=== PATIENT | male | born 1965 | race Caucasian/White ===

== ENCOUNTER 2017-02-10 19:43 | Inpatient (IN) | payer BC ==
[~2017-02-10 19:43] MED LIST: Iopamidol 370 76% 100 ML VIAL ONE
--- OUTSIDE RECORDS SUMMARY | 2017-02-10 19:47 | XMS | Continuity of Care Document ---
:1965 Author Organization [facility] Care Team Providers Name Role Phone An Vogel Primary Care Physician Unavailable Insurance Providers Payer Name Policy Number Subscriber Name Relationship [facility] [id number] AN ROMO Advance Directives Directive Response Recorded Date/Time Advance Directive? N 12/29/16 12:35pm Living Will? N 12/29/16 12:35pm Health Care Proxy? N 12/29/16 12:35pm Healthcare Power of Customer Program Manager? N 12/29/16 12:35pm Is the patient an Organ Donor? N 12/29/16 12:35pm Chief Complaint and Reason for Visit Reason for Visit SINUS INFECTION Problems Active Medical Problems Problem Onset Date Recorded Date Status Sinusitis Unknown 12/29/16 Active Cystitis Unknown 12/29/16 Active Medications Current Home Medications Medication Dose Units Route Directions Days/Qty Instructions Start Date AMOXICILLIN & POT 250 MG By Mouth THREE TIME A 30 12/29/16 CLAVULANATE DAY(;15;21) (AUGMENTIN 250 MG) 250 MG/125 MG TAB Levofloxacin 250 MG By Mouth EVERY DAY @ 14 12/29/16 (LEVAQUIN 250 MG 0900 TAB) 250 MG TAB Social History Problem Response Recorded Date Recreational drugs? N 12/29/16 Alcohol? N 12/29/16 Query Response Start Date Stop Date Smoking Status: Never Smoker Hospital Discharge Instructions No hospital discharge instructions. Plan of Care Discharge Date 12/29/16 Disposition HOME/SELF CARE Condition at Discharge STABLE Instructions/Education Provided Acute Cystitis DI for Sinusitis Forms Provided Discharge Form Prescriptions See Medications Section Referrals An Vogel - Additional Instructions/Education Follow up with primary care doctor on saturday for re-evaluation. Return to ED for any worsening symptoms or any acute changes. Functional Status No functional status results. Allergies, Adverse Reactions, Alerts No known allergies. Immunizations No Known History of Immunizations. Vital Signs Vital Reading Collection Date/Time Result Blood Pressure 12/29/16 1:02pm 101/51 Temperature 12/29/16 1:02pm 98.5 F Temperature Source 12/29/16 12:16pm Oral Pulse Rate 12/29/16 1:02pm 71 Bedside Pulse Oximetry 12/29/16 1:02pm 92 Height 12/29/16 12:16pm 5 ft 11 in Height 12/29/16 12:16pm 180.34 cm Weight 12/29/16 12:16pm 270 lb Weight 12/29/16 12:16pm 122.47 kg Body Mass Index 12/29/16 12:16pm 37.7 kg/m2 Results Laboratory Results Test Name Result Units Flags Reference Collection Result Comments Date/Time Date/Time Urine Color ORANGE A YELLOW 12/29/16 12/29/16 Substances that cause abnormal urine color may affect the 12:14pm 12:23pm readability of test pads on urinalysis reagent strips. These substances include visible levels of blood or bilirubin and drugs containing dyes (e.g., Pyridium, Azo Gantrisin, Azo Gantanol), nitrofurantion (Macrodantin, Furadantin), or riboflavin. Urine CLOUDY A CLEAR 12/29/16 12/29/16 Appearance 12:14pm 12:23pm Urine Glucose NEGATIVE mg/dL NEGATIVE 12/29/16 12/29/16 12:14pm 12:23pm Urine SMALL A NEGATIVE 12/29/16 12/29/16 Bilirubin 12:14pm 12:23pm Urine Ketones NEGATIVE NEGATIVE 12/29/16 12/29/16 12:14pm 12:23pm Urine Specific 1.020 1.002-1.030 12/29/16 12/29/16 [place] 12:14pm 12:23pm Urine Blood MODERATE A NEGATIVE 12/29/16 12/29/16 12:14pm 12:23pm Urine pH 5.5 4.5-8.0 12/29/16 12/29/16 12:14pm 12:23pm Urine Protein 100 mg/dL A NEGATIVE 12/29/16 12/29/16 12:14pm 12:23pm Urine 1.0 E.U./dL 0.2 12/29/16 12/29/16 Urobilinogen 12:14pm 12:23pm Urine Nitrite NEGATIVE NEGATIVE 12/29/16 12/29/16 12:14pm 12:23pm Urine SMALL A NEGATIVE 12/29/16 12/29/16 Leukocyte 12:14pm 12:23pm Esterase Urine YES NO 12/29/16 12/29/16 Microscopic 12:14pm 12:23pm Indicated Urine RBC 6-14 /hpf A 0-2 12/29/16 12/29/16 12:14pm 12:27pm Urine WBC 50-99 /hpf A 0-2 12/29/16 12/29/16 "Urine Culture 12:14pm 12:27pm test was reflexed and added to this specimen" Urine NONE SEEN /hpf 0-2 12/29/16 12/29/16 Epithelial 12:14pm 12:27pm Cells Urine Bacteria 1+ /hpf A NEG 12/29/16 12/29/16 "Urine Culture 12:14pm 12:27pm test was reflexed and added to this specimen" Urine Fine 0-2 /hpf A NEG 12/29/16 12/29/16 Granular Casts 12:14pm 12:27pm [facility] MERRILL ROMO [address] [id number] / [id number] [place], [place] [id number] 51 / M Adm: History of Present Illness General Chief Complaint Eye/Ears/Nose/Throat Stated Complaint SINUS INFECTION Date seen by MD 12/29/16 Time seen by 1226 Source patient History limited by no limitations Reviewed nurses notes, vital signs, home medications, allergies History of Present Illness Initial Comments Pt with a day and a half of sinus pain and congestion and drainage, with reported fever of 102 last night. Also c/o dysuria and frequency of the same period of time. He says the sinus infections are common and frequently requires abx, however- he hasn't had a bladder infection recently. He has no abd or pelvic pain, no pain with bowel movements , and is not sexually active. No penile dischrge, but there is odor to urine. Severity moderate Location nose, facial Prearrival Treatment no prearrival treatment Modifying Factors worse with activity, worse with coughing, worse with lying down, improves with rest Associated Symptoms cough, facial pain/swelling, fever, nasal congestion/ drainage, sinus infection Allergies Coded Allergies: No Known Drug Allergy (12/29/16) Review of Systems Constitutional denies chills, denies fever Eyes denies no symptoms reported Ears other (fullness bilaterally) Nose denies congestion, denies purulent discharge Mouth denies no symptoms reported Throat denies no symptoms reported Respiratory denies no symptoms reported Cardiovascular denies no symptoms reported Gastrointestinal denies no symptoms reported Musculoskeletal denies no symptoms reported Skin denies no symptoms reported Neurological denies no symptoms reported Hematologic/Lymphatic denies no symptoms reported Immunological/Allergic denies no symptoms reported All Other Systems Reviewed and Negative Past History History unobtainable due to no limitations Past Medical History Past Medical History HTN, Cancer. Surgical History no recent surgery Family History Significant Family History no pertinent family hx, hx reviewed, not relevant Social History Smoking Status: Never Smoker Drug Use does not use Physical Exam Physical Exam General Appearance calm, no apparent distress, well hydrated Nose sinus tenderness Mouth/Throat pharynx normal Neck normal inspection, appropriate ROM, non-tender, supple, trachea midline Head& Neck - Front [Embedded Image Not Available] 1) sinus tenderness on both sides, and frontal sinus pain bilaterally. Cardiovascular/Respiratory normal inspection, normal breath sounds Gastrointestinal non-tender, normal inspection, non-distended Neurologic/Psychiatric alert, appropriate mood/affect, no motor/sensory deficits , oriented x 3 Skin normal color, normal inspection, warm/dry Reviewed and agree with triage nurses notes Progress Vitals Vital Signs Date Time Temp Pulse Resp B/P B/P Pulse O2 O2 Flow FiO2 Mean Ox Delivery Rate 12/29 1216 98.5 71 101/51 92 Lab and Rad Results& Orders Laboratory Tests 12/29 Range/Units 1214 Urines Urine Color ORANGE A YELLOW Urine Appearance CLOUDY A CLEAR Urine pH 5.5 4.5 - 8.0 Ur Specific [place] 1.020 1.002 - 1.030 Urine Protein 100 A NEGATIVE mg/dL Urine Ketones NEGATIVE NEGATIVE Urine Blood MODERATE A NEGATIVE Urine Nitrite NEGATIVE NEGATIVE Urine Bilirubin SMALL A NEGATIVE Urine Urobilinogen 1.0 0.2 E.U./dL Ur Leukocyte Esterase SMALL A NEGATIVE Ur Microscopic Indic YES NO Urine RBC 6-14 A 0 - 2 /hpf Urine WBC 50-99 A 0 - 2 /hpf Ur Epithelial Cells NONE SEEN 0 - 2 /hpf Urine Bacteria 1+ A NEG /hpf Fine Granular Casts 0-2 A NEG /hpf Urine Glucose NEGATIVE NEGATIVE mg/dL Orders Procedure Date/time Status URINE CULTURE 12/29 1227 Active Z UA (URINALYSIS) 12/29 1214 Complete Details of Miscellaneous Nursing Order: Departure Departure Time of Disposition 1255 Disposition HOME/SELF CARE Clinical Impression Primary Impression: Sinusitis Qualifiers: Sinusitis location: frontal Chronicity: acute Recurrence: recurrent Qualified Code: J01.11 - Acute recurrent frontal sinusitis Secondary Impressions: Cystitis Condition STABLE Patient Instructions Acute Cystitis, DI for Sinusitis Additional Instructions Follow up with primary care doctor on saturday for re-evaluation. Return to ED for any worsening symptoms or any acute changes. Prescriptions Current Visit Scripts Levofloxacin (LEVAQUIN 250 MG TAB) 250 MG PO DAILY #14 TAB AMOXICILLIN& POT CLAVULANATE (AUGMENTIN 250 MG) 250 MG PO TID #30 TAB Attestation Seen and examined. Report created by: DOMINIK 12/29/16 1259 Report electronically signed by: THALIA ANTUNEZ MD 12/29/16 1259<<Signature on File>> Report cosigned by: Procedures No Known History of Procedures. Encounters Encounter Location Arrival/Admit Date Discharge/Depart Date Attending Provider Departed [facility] 12/29/16 12:06pm 12/29/16 1:02pm Jeffry ANTUNEZ MD Hospital Encounter Diagnosis Onset Date Sinusitis Cystitis
[2017-02-10 20:49] LABS: Bilirubin Small (Negative); Blood, Urine Large (Negative); Glucose, Urine (Dipstick) Negative (Negative); Ketone, Urine Trace mg/dL (Negative); Nitrite Negative (Negative); Protein, Urine (Dipstick) 100 mg/dL (Neg-Trace)
[2017-02-10 21:01] LABS: Hematocrit 42.4 % (42.0-52.0); Mean Platelet Volume 7.2 fL (7.4-10.4); Red Blood Cell (RBC) Count 4.05 mill/uL (4.70-6.10); White Blood Cell (WBC) Count 6.1 thou/uL (4.8-10.8)
[2017-02-10 21:03] LABS: Bacteria/HPF None Seen HPF (None Seen); Hyaline Casts/LPF 0-3 HYALINE CAST LPF (0-3 Hyaline); Yeast-All Forms 1+ HPF (None Seen)
[2017-02-10 21:08] LABS: Lactic Acid - Sepsis 2.2 mmol/L (0.5-2.2)
[2017-02-10 21:12] LABS: ALT (SGPT) 69 U/L (8-55); AST (SGOT) 59 U/L (5-34); Alkaline Phosphatase 112 U/L (40-150); Anion Gap 14 mmol/L (10-20); BUN (Urea Nitrogen) 16 mg/dL (8.4-25.7); Bilirubin, Total 3.4 mg/dL (0.2-1.2); Calc. Creatinine Clearance 0 mL/min (70-130); Calcium 9.7 mg/dL (7.8-10.44); Carbon Dioxide 22 mmol/L (22-29); Chloride 106 mmol/L (98-107); Estimated GFR-MDRD 48; Globulin 3.4 g/dL (2.4-3.5); Lipase 23 U/L (8-78); Protein, Total 6.6 g/dL (6.0-8.3)
[2017-02-10 21:14] LABS: Troponin I 0.023 ng/mL (< 0.028)
[2017-02-10 21:15] LABS: Anisocytosis SLIGHT = 6-15 cells (100X) (0-5/hpf); Band 4 % (5-11); Macrocytosis SLIGHT = 6-15 cells (100X) (0-5/hpf); Neutrophil 70 % (42-75); Toxic Granulation SLIGHT
--- NOTE | 2017-02-10 22:21 | RAD ---
PA AND LATERAL CHEST: Indication: Fever. Comparison: 06-22-11 FINDINGS: The lungs are clear. Cardiomediastinal silhouette is normal. No pleural effusion or pneumothorax is evident. No acute osseous abnormality is demonstrated. IMPRESSION: No acute cardiopulmonary abnormality. POS: [facility]
[2017-02-10] MEDS ORDERED: Sodium Chloride 0.9% 100 ML ONE (22:46)
[2017-02-10] MEDS ORDERED: Cefepime 2 GM VIAL ONE (22:46)
--- NOTE | 2017-02-10 22:59 | CT ---
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 Contrast: 70 cc of Isovue 370 were administered. Comparison: CT abdomen and pelvis 04-12-03 FINDINGS: There is cirrhosis of the liver. There is enlargement of the spleen measuring 15.2 cm. There are pro minent perisplenic and periesophageal varicotomy. Gallbladder demonstrates multiple stones. Pancreas is within normal limits. The adrenal glands and kidneys appear within normal limits. No free fluid is evident. There is a normal appendix in the right lower quadrant of the abdomen. The bladder, rectum, and perirectal soft tissues are unremarkable. No fat containing bilateral inguinal hernias. No acute osseous abnormality is evident. There is a small pulmonary nodule within the medial right lower lobe. IMPRESSION: 1. Cirrhosis with findings of portal hypertension. 2. Cholelithiasis. 3. No definite hydronephrosis evident. No abnormal enhancement involving the kidneys. Visualized phoebe dder is partially decompressed but unremarkable appearing by CT. 4. Small pulmonary nodule in the right lower lobe. POS: [facility]
[2017-02-10] MEDS ORDERED: Acetaminophen 325 MG TAB PO PRN (23:50)
[2017-02-10] MEDS ORDERED: Sodium Chloride 0.9% 1,000 ML IV SCH (23:50)
--- NOTE | 2017-02-11 00:32 | PDOC.EVN ---
Event Note - Event Note Event Note: [id number] h&p dictated 1. fever of unknown origin 2. Thrombocytopenia 3. H/O HTN 4. H/O Cirrhosis plan see orders
[2017-02-11] MEDS ORDERED: Ondansetron HCl/PF 4 MG/2 ML Vial IVP PRN (00:34)
[2017-02-11] MEDS ORDERED: Acetaminophen 325 MG TAB PO PRN (00:37)
[2017-02-11] MEDS ORDERED: Sodium Chloride 0.9% 1,000 ML IV SCH (00:45)
[2017-02-11] MEDS ORDERED: Zolpidem Tartrate 5 MG TAB PO SCH (01:30)
[2017-02-11 01:31] LABS: Anion Gap 11 mmol/L (10-20); BUN (Urea Nitrogen) 16 mg/dL (8.4-25.7); Calc. Creatinine Clearance 0 mL/min (70-130); Calcium 8.7 mg/dL (7.8-10.44); Carbon Dioxide 20 mmol/L (22-29); Chloride 109 mmol/L (98-107); Estimated GFR-MDRD 53
[2017-02-11 01:37] LABS: Band 2 % (5-11); Hematocrit 39.4 % (42.0-52.0); Mean Platelet Volume 7.6 fL (7.4-10.4); Neutrophil 62 % (42-75); Polychromasia SLIGHT = 2-3 cells (100X) (0-2/hpf); Red Blood Cell (RBC) Count 3.46 mill/uL (4.70-6.10); White Blood Cell (WBC) Count 4.4 thou/uL (4.8-10.8)
[2017-02-11 02:31] VITALS: BMI 34.2
--- NOTE | 2017-02-11 06:42 | HP ---
DATE OF ADMISSION: 02/11/2017 CHIEF COMPLAINT: Fever and chills. HISTORY OF PRESENT ILLNESS: Patient is a 52-year-old male with past medical history of hypertension and chronic back pain, now came to the ER because of fever and chills. The patient said he is having fever and chills for the past one month, fever intermittent; fever associated with a severe headache also. The patient's temperature at home was around 103. Patient's symptoms persisted for the last one month, patient was seen in the outside clinic approximately 3 weeks back and patient was prescribed antibiotics for 1 week for a possible UTI and sinusitis. Fever did not improve, so patient went to saw PCP 3 weeks back, so patient was prescribed Augmentin, amoxicillin 825 mg for 2 weeks. The patient finished a course for 2 weeks and the fever and chills still persisted, that is why he came to the ER today. Denies any cough, denies sputum production. Denies any nausea or vomiting. Denies any complaints of some loose stools with antibiotics. Denies any chest pain. Denies any palpitations. Denies recent travel. Complains of headache with the fever but denies any headache at this time. Denies any neck pain. PAST MEDICAL HISTORY: As per HPI. PAST SURGICAL HISTORY: Back surgery and sinus surgery. SOCIAL HISTORY: Denies smoking, denies alcohol, and denies any drugs. FAMILY HISTORY: Positive for heart problems. MEDICATIONS: Reviewed. ALLERGIES: ADHESIVE TAPE and ZOFRAN. REVIEW OF SYSTEMS: Constitutional: Positive for fever and chills. Eyes: Denies vision problems. Neck: Denies any neck pain. Cardiovascular: Denies any chest pain, denies any palpitations. Respiratory: Denies any cough, denies any sputum production. Cranial nerve system: Denies syncope. Psychiatric: Admits to anxiety. Integument: Denies any rash. Musculoskeletal: Denies any joint deformities. All other review of systems are reviewed and are negative. PHYSICAL EXAMINATION: CONSTITUTIONAL/VITAL SIGNS: At the time of H and P performed, blood pressure is 120/70, afebrile, pulse ox 97% on room air. GENERAL: The patient appears comfortable. HEENT: Pupils equal, round, and reactive and denies patent. Nose normal. Ears normal. Teeth intact. Tongue is moist. NECK: Supple, no JVD. CARDIOVASCULAR: S1, S2 present. Regular rate and rhythm. No murmurs, no rubs, no gallops. RESPIRATORY: Normal effort, no accessory muscle usage seen, No wheezing, no rhonchi. GASTROINTESTINAL: Abdomen is soft, nontender, no guarding, no organomegaly, no masses felt. MUSCULOSKELETAL: No edema. moves all joints INTEGUMENTARY: No rashes seen. PSYCHIATRIC: Mood is appropriate at this time. LABORATORY DATA: At the time of H and P performed. White count 6.1, hemoglobin 15.1, platelet count 92,000. BMP showed sodium 130, potassium 3.5, chloride 106, CO2 of 22, BUN 16, creatinine 1.52, troponin 0.023, albumin 3.2. UA positive for 11-20 rbc's, 4-6 wbc's, large blood, negative for nitrites. CT abdomen and pelvis without contrast, cirrhosis with portal hypertension, cholelithiasis. ASSESSMENT AND PLAN: The patient is a 52-year-old male. 1. Fever of unknown origin. Plan to start patient on IV cefepime and IV Levaquin empirically. Plan to monitor the patient closely. We will go ahead and consult ID to evaluate the patient. 2. Hypertension. Monitor blood pressures. Continue home blood pressure medications. Hold hydrochlorothiazide for now. 3. Acute kidney injury. Monitor creatinine closely; IV fluids, repeat BMP in the morning. Acute kidney injury might be secondary to decreased p.o. intake and diuretics. We will monitor closely and if creatinine worsens, we will do further workup. 4. History of back pain, on p.r.n. pain meds. 5. Thrombocytopenia plus cirrhosis, currently being worked up as an outpatient and follow up with GI as an outpatient. The case was discussed in detail with the patient. SHARON
[2017-02-11] MEDS: Cefepime 2 GM in Sodium Chloride 0.9% 100 ML IVPB SCH ×2 (09:05→20:58)
[2017-02-11] MEDS: clonazePAM 1 MG TAB PO SCH ×2 (09:05→20:59)
[2017-02-11] MEDS: Fluticasone Propionate Nasal Spray 16 gm Bottle NASAL SCH (09:07)
[2017-02-11] MEDS: Sodium Chloride 0.9% 1,000 ML IV SCH ×2 (11:34→15:49)
--- NOTE | 2017-02-11 11:52 | CON ---
DATE OF CONSULTATION: 02/11/2017 REASON FOR CONSULTATION: Fever. HISTORY OF PRESENT ILLNESS: A 52-year-old patient who has a history of chronic low back problems managed with laminectomy at the beginning of this year as well as post-laminectomy injections at the pain clinic who for the past month has had recurrent episodes of fever. Sometimes, it feels like it has coincidence with the periods that where he ejaculates, but most of the time, it does not have a relationship to it. Temperature goes up to 103, has been treated for UTIs and for respiratory tract symptoms, although he never had urinary tract symptoms, but did have or does have symptoms consistent with allergic rhinitis or sinusitis. The antimicrobial therapy has consisted of amoxicillin with persistence of the fever. No headaches except when he is having fever. No visual symptoms. No sore throat or toothache. A little bit of cough, very minimal. No chest pain, no dyspnea. No abdominal pain. No genitourinary symptoms or diarrhea except when he takes the antibiotics. The lower back pain is quite intense and he grades it anywhere from 5-8/10 and it has gotten worse over the past month or so. PAST MEDICAL HISTORY: Chronic low back problems. PAST SURGICAL HISTORY: Back surgery, sinus surgery. SOCIAL HISTORY: [place] area. No alcoholic beverage use. Never a smoker and does not use any drugs. FAMILY HISTORY: Heart disease. CURRENT MEDICATIONS: Include cefepime, clonazepam, levofloxacin, and zolpidem. PHYSICAL EXAMINATION: VITAL SIGNS: T-max 98.4, blood pressure 103/63, pulse 58, respirations 16, O2 sat 97%. SKIN: Normal. Peripheral IV access. No Ruiz catheter. No lymphadenopathy. The patient does have a few areas of acneiform eruption in the back. HEENT: Ocular movements are conjugate. Sclerae white. Oral cavity normal. Teeth with some decay and gum disease. NECK: Supple, no jugular venous distention. LUNGS: Symmetric, clear breath sounds. HEART: Regular rate and rhythm. S1, S2, without murmurs. ABDOMEN: Soft. Not distended or tender. No ascites. No bladder distention. Moderate pain in the lower back area. EXTREMITIES: No joint inflammatory activity. Pulses are 2+ in dorsalis pedis. NEUROLOGIC: Nonfocal. Cognitive function is intact. LABORATORY DATA AND X-RAY FINDINGS: White cell count was 6.1 and 4.4, hemoglobin 15 and 13, platelets 92 and 79, 77 neutrophils, 4% bands. Sodium 136 , creatinine was 1.5 and now 1.4, AST 59, ALT 69, bilirubin 3.4. Albumin 3.2. Urinalysis with 11-20 rbcs, 4-6 wbcs. Two sets of blood cultures pending at this time. Abdomen and pelvis CT demonstrated cirrhosis with portal hypertension, cholelithiasis. No other abnormalities except for small pulmonary nodule, right lower lobe. Chest x-ray with no abnormal findings. ASSESSMENT: History of longstanding low back pain with laminectomy at the beginning of the year, a few injections at the pain clinic, now with persistence of fever, for the past month with worsening low back pain. The patient also has now identified cirrhosis, which is until proven otherwise, cryptogenic, but will have to do serologies. Pt also believes there is a temporal relationship between ejaculations and fever but it is unlikely to be significant since it only happened twice. DISCUSSION: Differential diagnoses includes lumbosacral spine in the infectious process versus an alternate cause of fever. Mycobacterium tuberculosis, brucellosis, chronic hepatitis C with complications, HIV infection will have to be ruled out. MTDD
--- NOTE | 2017-02-11 14:29 | MRI ---
MRI OF THE LUMBAR SPINE WITH AND WITHOUT IV CONTRAST: Date: 02/11/17 INDICATION: Postoperative lumbar spine with fever and low back pain. TECHNIQUE: Multiplanar, multisequence MR images were obtained of the lumbar spine with and without IV contrast. The patient received 10 mL of MultiHance for the exam. FINDINGS: No comparisons are available. There is postsurgical change of a laminectomy at L2-3. No drainable fluid collection is seen within the operative site. There is enhancement of the operative site which can be related to scar tissue. At L5-S1, there is moderate bilateral facet joint degenerative change and broad based disc bulge ind ucing mild left neural foraminal narrowing. At L4-5, there is a broad based bulge with facet joint degenerative change inducing mild bilateral n eural foraminal narrowing. At L3-4, there is a broad based bulge and mild facet joint degenerative change inducing mild bilater al neural foraminal narrowing. At L2-3, there is facet joint degenerative change with retrolisthesis of L2 on L3. There are Modic e nd plate degenerative changes at this level. There is no appreciable central canal narrowing. There is, however, moderate to severe right and severe left neural foraminal narrowing present. At the L1-2 level, there is a broad based bulge with facet joint degenerative change with mild neura l foraminal narrowing. At the T12-L1 level, there is a broad based disc osteophyte complex with mild bilateral neural jaylin inal narrowing. IMPRESSION: 1. Postoperative changes of laminectomy at L2-3 without evidence of a drainable fluid collection. 2. There is severe left and moderate to severe right neural foraminal narrowing at L2-3 due to a br oad based disc osteophyte complex and facet hypertrophy. 3. Retrolisthesis of L2 on L3 which is likely degenerative in nature with associated Modic end plat e degenerative changes. 4. Multilevel mild neural foraminal narrowing as detailed above. POS: [facility]
[2017-02-11] MEDS ORDERED: Gadobenate Dimeglumine 529 MG/1 ML (20ML VIAL) ONE (15:57)
[2017-02-11] MEDS: Zolpidem Tartrate 5 MG TAB PO PRN (21:06)
[2017-02-12 05:08] LABS: ALT (SGPT) 51 U/L (8-55); AST (SGOT) 48 U/L (5-34); Alkaline Phosphatase 122 U/L (40-150); Anion Gap 8 mmol/L (10-20); BUN (Urea Nitrogen) 18 mg/dL (8.4-25.7); Bilirubin, Total 1.1 mg/dL (0.2-1.2); Calc. Creatinine Clearance 104 mL/min (70-130); Calcium 8.8 mg/dL (7.8-10.44); Carbon Dioxide 25 mmol/L (22-29); Chloride 110 mmol/L (98-107); Estimated GFR-MDRD 58; Globulin 2.7 g/dL (2.4-3.5); Protein, Total 5.3 g/dL (6.0-8.3)
[2017-02-12 05:56] LABS: Band 2 % (5-11); Hematocrit 38.5 % (42.0-52.0); Macrocytosis MODERATE=16-30 cells (100X) (0-5/hpf); Mean Platelet Volume 7.5 fL (7.4-10.4); Neutrophil 43 % (42-75); Reactive Lymphocytes 1 % (0-10); Red Blood Cell (RBC) Count 3.38 mill/uL (4.70-6.10); White Blood Cell (WBC) Count 3.2 thou/uL (4.8-10.8)
[2017-02-12] MEDS: clonazePAM 1 MG TAB PO SCH ×2 (09:17→21:28)
[2017-02-12] MEDS: Cefepime 2 GM in Sodium Chloride 0.9% 100 ML IVPB SCH ×2 (09:18→21:28)
[2017-02-12] MEDS: Fluticasone Propionate Nasal Spray 16 gm Bottle NASAL SCH (09:21)
--- NOTE | 2017-02-12 14:52 | PDOC.PN ---
- Subjective Encounter Start Date: 02/12/17 Encounter Start Time: 12:30 Subjective: no urinary urgency/freq/cough/fever/sob -: feels good after hospitalization with no fever since then - Objective MAR Reviewed: Yes Vital Signs & Weight: Vital Signs (12 hours) Temp Pulse Resp BP Pulse Ox 02/12/17 08:00 97.6 F 52 L 18 101/63 96 Weight Weight 245 lb 9.6 oz I&O: 02/11/17 02/12/17 02/13/17 06:59 06:59 06:59 Intake Total 1230 Balance 1230 Result Diagrams: 02/12/17 03:30 02/12/17 03:30 Phys Exam - Physical Examination HEENT: PERRLA, sclera anicteric Neck: no JVD, supple Respiratory: no wheezing, no rales Cardiovascular: RRR, no significant murmur Gastrointestinal: soft, non-tender, positive bowel sounds Musculoskeletal: pulses present Neurological: non-focal, moves all 4 limbs Psychiatric: A&O x 3 Dx/Plan (1) SIRS (systemic inflammatory response syndrome) Code(s): R65.10 - SIRS OF NON-INFECTIOUS ORIGIN W/O ACUTE ORGAN DYSFUNCTION Status: Acute (2) HTN (hypertension) Code(s): I10 - ESSENTIAL (PRIMARY) HYPERTENSION Status: Chronic Qualifiers: Hypertension type: essential hypertension Qualified Code(s): I10 - Essential (primary) hypertension (3) Obesity (BMI 30.0-34.9) Code(s): E66.9 - OBESITY, UNSPECIFIED Status: Chronic (4) Cirrhosis Code(s): K74.60 - UNSPECIFIED CIRRHOSIS OF LIVER Status: Chronic Qualifiers: Hepatic cirrhosis type: unspecified hepatic cirrhosis Ascites presence: without ascites Qualified Code(s): K74.60 - Unspecified cirrhosis of liver (5) Thrombocytopenia Code(s): D69.6 - THROMBOCYTOPENIA, UNSPECIFIED Status: Chronic - Plan pt gets fever after ejaculation and wants to see urologist -: blood cs -ve, urine cs-ve -: no fever, normal wbc -: dc plan per /urology advice -: ?prostatitis * . Review of Systems - Medications/Allergies Allergies/Adverse Reactions: Allergies Allergy/AdvReac Type Severity Reaction Status Date / Time adhesive tape Allergy peels skin Verified 02/11/17 00:01 off ondansetron Allergy severe Verified 02/11/17 00:01 [From Zofran (as headache hydrochloride)] Medications: Current Medications Acetaminophen (Tylenol) 650 mg PO Q4H PRN PRN Reason: Headache/Fever or Pain Clonazepam (Klonopin) 1 mg PO BID ANNA Last Admin: 02/12/17 09:17 Dose: 1 mg Fluticasone Propionate (Flonase Nasal [place]) 0 gm NASAL DAILY ANNA Last Admin: 02/12/17 09:21 Dose: Not Given Cefepime HCl 2 gm/ Sodium (Chloride) 100 mls @ 200 mls/hr IVPB Q12HR ANNA Last Admin: 02/12/17 09:18 Dose: 100 mls Levofloxacin 750 mg/ Device 150 mls @ 100 mls/hr IVPB Q24HR ANNA Last Admin: 02/12/17 01:06 Dose: 150 mls Ondansetron HCl (Zofran) 4 mg IVP Q6H PRN PRN Reason: Nausea/Vomiting Sodium Chloride (Flush - Normal Saline) 10 ml IVF Q12HR ANNA Last Admin: 02/12/17 09:21 Dose: Not Given Sodium Chloride (Flush - Normal Saline) 10 ml IVF PRN PRN PRN Reason: Saline Flush Zolpidem Tartrate (Ambien) 10 mg PO HSPRN PRN PRN Reason: Insomnia Last Admin: 02/11/17 21:06 Dose: 10 mg
[2017-02-12] MEDS: Zolpidem Tartrate 5 MG TAB PO PRN (21:28)
--- NOTE | 2017-02-12 23:40 | PRG ---
DATE OF SERVICE: 02/12/2017 SUBJECTIVE: Has not had a fever since admission, feeling better. OBJECTIVE: VITAL SIGNS: T-max 98.2. Other vital signs are normal. LUNGS: Clear. HEART EXAMINATION: Normal. ABDOMEN: Soft. Dr. Light is going to evaluate the patient later, so I did not do a rectal examination at this time . LABORATORY DATA: White cell count is at 3.2, hemoglobin 12.9, platelets 43,000. Serology showed ne gative hepatitis C and HIV serology. Creatinine 1.3, albumin 2.6. Serum total protein 5.3. Microb iology with negative urine and blood cultures thus far. Currently, the patient is receiving cefepim e. ASSESSMENT: 1. Chronic low-back pain with prior interventions. 2. History of recurring fever for the past month, which seems to have some temporal relationship wi th ejaculation. The patient now remembers 4 instances where he remembers a close relationship betwe en febrile responses and ejaculation. It is possible that he might have prostatitis or epididymitis , although on the physical examination does not apparent. I offered to do a rectal exam, but the pa anitah is going to be seen by Dr. Light later on today, so I will wait for him to do the exam. In t he meantime, he continues to have antimicrobial therapy. The MRI of the lumbosacral spine did not s how any evidence of inflammatory process, so thus unlikely to be the culprit here; now we should tur n our attention to the prostate gland and epididymis.
[2017-02-13 05:57] LABS: #Eosinphils 0.2 thou/uL (0.0-0.7); #Lymphocytes 1.2 thou/uL (1.20-3.40); #Monocytes 0.4 thou/uL (0.11-0.59); %Basophils 1.6 % (0.0-1.0); %Eosinophils 8.1 % (0.0-10.0); %Lymphocytes 42.9 % (21.0-51.0); %Monocytes 12.4 % (0.0-10.0); Hematocrit 37.9 % (42.0-52.0); Mean Platelet Volume 8.3 fL (7.4-10.4); Red Blood Cell (RBC) Count 3.32 mill/uL (4.70-6.10); White Blood Cell (WBC) Count 2.8 thou/uL (4.8-10.8)
[2017-02-13 06:17] LABS: ALT (SGPT) 60 U/L (8-55); AST (SGOT) 57 U/L (5-34); Alkaline Phosphatase 119 U/L (40-150); Anion Gap 7 mmol/L (10-20); BUN (Urea Nitrogen) 17 mg/dL (8.4-25.7); Calc. Creatinine Clearance 109 mL/min (70-130); Calcium 8.8 mg/dL (7.8-10.44); Carbon Dioxide 23 mmol/L (22-29); Chloride 113 mmol/L (98-107); Estimated GFR-MDRD 61; Globulin 2.7 g/dL (2.4-3.5); Protein, Total 5.2 g/dL (6.0-8.3)
[2017-02-13] MEDS: clonazePAM 1 MG TAB PO SCH ×2 (09:55→20:22)
[2017-02-13] MEDS: Fluticasone Propionate Nasal Spray 16 gm Bottle NASAL SCH (10:01)
[2017-02-13] MEDS: Cefepime 2 GM in Sodium Chloride 0.9% 100 ML IVPB SCH ×2 (10:01→20:22)
--- NOTE | 2017-02-13 13:08 | PRG ---
DATE OF SERVICE: 02/13/2017 SUBJECTIVE: He was evaluated by Dr. Light, he was not impressed by the prostate exam. He supposed to have a liver biopsy ordered by Dr. Johnston to evaluate the cirrhosis of the liver. Patient other sarkar feeling okay. Again, he did not expect to have fever because he did not ejaculate. It seems l gaudencio there is a pretty close relationship. He has been afebrile through the hospital stay and the ex am is not remarkable. At this time, microbiology with negative cultures 48-72 hours. LABORATORY DATA: White cell count 2.8, hemoglobin 12, platelets 72,000, 42% lymphocytes. Creatinin e 1.24. Sodium 139, AST 57, ALT 60 and patient is supposed to have a liver biopsy. ASSESSMENT AND DISCUSSION: Recurrent fever past month with a temporal relationship to genitourinary function, particularly ejaculation. We will continue Cipro for 4 weeks and will order an indium la beled WBC study. Patient will need a workup for his cirrhosis with the usual assays for metabolic d iseases and the biopsy may demonstrate fatty liver. Hepatitis C negative, but he did not have the o ther serologies and followup in the clinic.
[2017-02-13 15:15] LABS: Amphetamine Not Detected (NotDetected); Methadone Not Detected (NotDetected); Methamphetamine Not Detected (NotDetected)
--- NOTE | 2017-02-13 16:42 | PDOC.PN ---
- Subjective Encounter Start Date: 02/13/17 Encounter Start Time: 14:00 Subjective: no new complaints - Objective MAR Reviewed: Yes Vital Signs & Weight: Vital Signs (12 hours) Temp Pulse Resp BP Pulse Ox 02/13/17 08:27 97.8 F 57 L 20 120/81 97 02/13/17 08:00 97.8 F 57 L 20 Weight Weight 245 lb 9.6 oz I&O: 02/12/17 02/13/17 02/14/17 06:59 06:59 06:59 Intake Total 1230 730 Balance 1230 730 Result Diagrams: 02/13/17 05:27 02/13/17 05:27 Phys Exam - Physical Examination HEENT: PERRLA, moist MMs Neck: no JVD, supple Respiratory: no wheezing, no rales Cardiovascular: RRR, no significant murmur Gastrointestinal: soft, non-tender, no distention, positive bowel sounds Musculoskeletal: no edema, pulses present Neurological: non-focal, moves all 4 limbs Psychiatric: A&O x 3 Dx/Plan (1) SIRS (systemic inflammatory response syndrome) Code(s): R65.10 - SIRS OF NON-INFECTIOUS ORIGIN W/O ACUTE ORGAN DYSFUNCTION Status: Acute (2) HTN (hypertension) Code(s): I10 - ESSENTIAL (PRIMARY) HYPERTENSION Status: Chronic Qualifiers: Hypertension type: essential hypertension Qualified Code(s): I10 - Essential (primary) hypertension (3) Obesity (BMI 30.0-34.9) Code(s): E66.9 - OBESITY, UNSPECIFIED Status: Chronic (4) Cirrhosis Code(s): K74.60 - UNSPECIFIED CIRRHOSIS OF LIVER Status: Chronic Qualifiers: Hepatic cirrhosis type: unspecified hepatic cirrhosis Ascites presence: without ascites Qualified Code(s): K74.60 - Unspecified cirrhosis of liver (5) Thrombocytopenia Code(s): D69.6 - THROMBOCYTOPENIA, UNSPECIFIED Status: Chronic - Plan on cefepime and levaquin -: no source for fever -: no clinical evidence of prostatitis or epididymo-orchitis per -: d/w , echo, wbc nuclear scan * . Review of Systems - Medications/Allergies Allergies/Adverse Reactions: Allergies Allergy/AdvReac Type Severity Reaction Status Date / Time adhesive tape Allergy peels skin Verified 02/11/17 00:01 off ondansetron Allergy severe Verified 02/11/17 00:01 [From Zofran (as headache hydrochloride)] Medications: Current Medications Acetaminophen (Tylenol) 650 mg PO Q4H PRN PRN Reason: Headache/Fever or Pain Clonazepam (Klonopin) 1 mg PO BID [facility] Last Admin: 02/13/17 09:55 Dose: 1 mg Fluticasone Propionate (Flonase Nasal [place]) 0 gm NASAL DAILY ANNA Last Admin: 02/13/17 10:01 Dose: Not Given Cefepime HCl 2 gm/ Sodium (Chloride) 100 mls @ 200 mls/hr IVPB Q12HR ANNA Last Admin: 02/13/17 10:01 Dose: Not Given Levofloxacin 750 mg/ Device 150 mls @ 100 mls/hr IVPB Q24HR ANNA Last Admin: 02/13/17 01:58 Dose: 150 mls Ondansetron HCl (Zofran) 4 mg IVP Q6H PRN PRN Reason: Nausea/Vomiting Sodium Chloride (Flush - Normal Saline) 10 ml IVF Q12HR ANNA Last Admin: 02/13/17 10:00 Dose: Not Given Sodium Chloride (Flush - Normal Saline) 10 ml IVF PRN PRN PRN Reason: Saline Flush Zolpidem Tartrate (Ambien) 10 mg PO HSPRN PRN PRN Reason: Insomnia Last Admin: 02/12/17 21:28 Dose: 10 mg
--- NOTE | 2017-02-13 17:33 | CON ---
DATE OF CONSULTATION: 02/13/2017 HISTORY OF PRESENT ILLNESS: This is a 52-year-old white male, I was asked to see by the hospitalist group here. He was admitted on the . He came in with fevers and chills. He stated that he montes d a temperature of 102.8 when he was in the emergency room. Looking at his vital signs since he has been admitted to the hospital, he has been afebrile, nontachycardic with normal blood pressure and normal O2 sat. He said that in the emergency room, he had shaking and had an elevated temperature a nd before he had received anything more than some normal saline, the fever went away, the chills ya t away, and a headache that was associated with them went away. It has been difficulty to try to fi nd what is going on with him. He has had Infectious Disease see him. He had blood cultures done, t here are no growth to date. He has had a urine culture done that so far is no growth. His urinalys is when he came in showed 11-20 red blood cells, 4-6 white blood cells, 4-6 epithelial cells, 1+ yea st and some protein. His creatinine when he came in was 1.52, is now 1.24. His white count when he came in was 6.1, it is now 2.8. He did have some bandemia when he first came in and this has stead ion improved. His hemoglobin is 12.8. 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. At that time, he had some nodules come up between the scrotum and the inner thigh on the left side and he reports being in the hospital there for 2 weeks, he thinks on antibiotics, he did not have biopsi es done. Did not have him lanced or drained and he believes they went away with the medications aleksandra t they put him on, possibly it was antibiotics. They have not come back. He did have some problems with sleep and he was initially given some Pristiq for sleep and he had problems with some erectile dysfunction that occurred while he start taking the Pristiq, this occurred probably a number of mon ths ago, maybe even longer ago than that. He tried a different medicine for sleep and had the same effect, so he stopped it. He has not been on any of those for a number of months, but has still had problems with erectile dysfunction, mainly difficulty obtaining an erection. He has tried Cialis f ew months ago, but he does not believe it helped at all. A couple of months ago, he had difficulty with urination and some urgency and frequency of urination, not really any burning with urination, a t this time also, it was felt like he had a sinus infection. He at that time had fever and chills a lso, when he went to one of the Urgent Care Centers in [place] and he was told he had sinusitis a s well as a urinary tract infection and he was put on antibiotics for that. That was apparently a c enter that was not associated with [place]. We do not have any records of what the urine look li ke or if a culture was done. He had some improvement of his urinary voiding symptoms on the antibio tics after he finished the course. He went to see his family doctor after that and he was placed on amoxicillin for a longer course for sinusitis and was told at that point that his urine looked norm al, so the urinary tract infection had cleared. He was still having through this time some problems maintaining erection. Over the past two months, 4 times he has had fever that he has documented to as high as 103.0, some chills and a severe headache. It has happened 4 times in 2 months; one of t hem was at time when he went to the Urgent Care Center. The other two came on and resolved on their own with some Tylenol within a day and then this last one that lasted from Saturday night to Saturday w hen he came into the hospital to be admitted and it resolved in the emergency room on Saturday. All f our of these times, he states that he had either sexual relations with his for masturbation and the fever came on 30 minutes after that. He also states it seems like the semen has become more li quidy and maybe once there was a little bit of blood in it. He has not had fevers or chills apart f rom this and generally they have gone away within a day, although the last time they last for couple of days, which is why he came into the hospital. He has not had relations are ejaculated in this s que period of time and not had a fever or chills or headache with it. He is not having any burning with urination. He is not having any dysuria. He does have a fair amount of nocturia, gets up a fe w times every night, daytime frequency is really about normal, although he does drink a lot of fluid s. His force of stream is adequate. He feels like he empties okay, he has had no discharge from th e penis. He has had no history of urinary tract infections, sexual diseases or stone disease as he has not had a catheter in his bladder. He does have some low back pain, but this has been a chronic nature. He not that long ago had a surgical procedure done and he has also been having some inject ions in his back and his back pain has improved since this, but he still has some underlying back pa in. He is not having any pain or discomfort in the testicles. I guess the only other thing that is abnormal and his lab work is his platelet count has been low since he came in at 72,000, now 92,000 ; when he came in. I do not know if this is a chronic issue or not. His routine medicines when he came in were aspirin, clonazepam, and the blood pressure medicine is bisoprolol/HCTZ, and clonazepam he is taking once a day and aspirin, he also I think was possibly still in the amoxicillin. CURRENT MEDICATIONS: Include Tylenol, cefepime, clonazepam. He is on Flonase nasal spray and he wa s using that before he came into the hospital, he is also on Levaquin, Zofran, and Ambien. PHYSICAL EXAMINATION: Penis is without lesion, there is no mass. There is no nodularity. There is no inguinal adenopathy. Testicles descended. He has got a small left superior epididymal cyst/spe rmatocele, he has had for a number of years, it is nontender. There is no testicular masses, no her nias. Rectal exam reveals normal rectal tone, no rectal lesions. His prostate is minimally enlarge d. There is no fluctuance. There is no significant tenderness, it is soft. I have ordered a PSA on him. It is currently pending. I believe it was ordered today. IMPRESSION: Microscopic hematuria, he had this when he was in the emergency room 2 months ago in [facility]. He was told there was some blood in the urine. He has got blood in the urine again today . He was set up to see Dr. Capps for this and I do think he needs to be further evaluated for wi th a cystoscopic exam. He has had a CAT scan done here, that I have already reviewed, it was done t he day that he came in. It was done with IV contrast and there was no evidence of a solid renal mas s, renal cyst, or kidney stone. There is no evidence of obstruction of either kidney. There is a s mall pulmonary nodule. There were some findings of some portal hypertension, and cirrhosis and some findings of some gallstones. So, he does need a cystoscopy at some point. I think I would wait un til perhaps some of these other symptoms have resolved or we have some knowledge of what they are be fore proceeding on with that. If his PSA is elevated, then it is certainly possible that he could h ave prostatitis, although this would be a very unusual presentation for prostatitis. Certainly some thing I have never seen before in the last 30 years of practice. He had a PSA done, he believes in September and it was quite low, so let see what is PSA is now. Again the PSA was done, not because of herman picion for prostate cancer, but because of prostatitis can cause the PSA to elevate. If the PSA is normal, I do not have a good answer why he has his current set of symptoms. 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 It is really unclear to me what is causing these symptoms, especially in light of the fact that the urine does not show obvious signs of infection and that all his cultures are coming back negative, but he does have documented fever when he came in to the [facility] [place]ency room, but he has not had it since. In terms of erectile dysfunction, the workup for that was generally be outpatient, but if he has not had a stress test or cardiac evaluation, we usually do t hat as an outpatient in a younger man that develops erectile dysfunction, as it can be indicative of small vessel disease in the hard penis or central vascular system. Otherwise, it would be treated with either medications or erectile vacuum assistive devices, and we can go over that as an outpatie nt, but does not seem to be addressed while here in the hospital. I will see what his PSA is, drakeo w along with you, but I do not have a good idea of exactly what is going on with him at this time.
[2017-02-13] MEDS: Zolpidem Tartrate 5 MG TAB PO PRN (20:22)
[2017-02-14] MEDS: Cefepime 2 GM in Sodium Chloride 0.9% 100 ML IVPB SCH (09:37)
[2017-02-14] MEDS: Fluticasone Propionate Nasal Spray 16 gm Bottle NASAL SCH (09:38)
[2017-02-14] MEDS: clonazePAM 1 MG TAB PO SCH (09:38)
[2017-02-14 09:46] VITALS: BP 118/81; TEMP 97.6
--- NOTE | 2017-02-14 14:55 | PDOC.PN ---
- Subjective Encounter Start Date: 02/14/17 Encounter Start Time: 11:00 Subjective: no new complaints - Objective MAR Reviewed: Yes Vital Signs & Weight: Vital Signs (12 hours) Temp Pulse Resp BP Pulse Ox 02/14/17 08:00 97.6 F 61 20 118/81 99 Weight Weight 245 lb 9.6 oz I&O: 02/13/17 02/14/17 02/15/17 06:59 06:59 06:59 Intake Total 1230 2220 720 Balance 1230 2220 720 Result Diagrams: 02/13/17 05:27 02/13/17 05:27 Phys Exam - Physical Examination HEENT: PERRLA, moist MMs Neck: no JVD, supple Respiratory: no wheezing, no rales Cardiovascular: RRR, no significant murmur Gastrointestinal: soft, non-tender, no distention, positive bowel sounds Musculoskeletal: no edema, pulses present Neurological: non-focal, moves all 4 limbs Psychiatric: A&O x 3 Dx/Plan (1) SIRS (systemic inflammatory response syndrome) Code(s): R65.10 - SIRS OF NON-INFECTIOUS ORIGIN W/O ACUTE ORGAN DYSFUNCTION Status: Acute (2) HTN (hypertension) Code(s): I10 - ESSENTIAL (PRIMARY) HYPERTENSION Status: Chronic Qualifiers: Hypertension type: essential hypertension Qualified Code(s): I10 - Essential (primary) hypertension (3) Obesity (BMI 30.0-34.9) Code(s): E66.9 - OBESITY, UNSPECIFIED Status: Chronic (4) Cirrhosis Code(s): K74.60 - UNSPECIFIED CIRRHOSIS OF LIVER Status: Chronic Qualifiers: Hepatic cirrhosis type: unspecified hepatic cirrhosis Ascites presence: without ascites Qualified Code(s): K74.60 - Unspecified cirrhosis of liver (5) Thrombocytopenia Code(s): D69.6 - THROMBOCYTOPENIA, UNSPECIFIED Status: Chronic - Plan pts wbc are around 3 and hence cant get indium wbc scan -: He is not willing to come for Gallium scan which requires atleast 2 if not -: -visits to Radiology dept. -: cipro for 4 weeks per advice -: dc pt home * .
--- NOTE | 2017-02-15 00:23 | DIS ---
DATE OF ADMISSION: 02/10/2017 DATE OF DISCHARGE: 02/14/2017 DISCHARGE DISPOSITION: To home. PRIMARY DISCHARGE DIAGNOSIS: Fever of unknown origin, resolved. SECONDARY DISCHARGE DIAGNOSES: Hypertension, obesity, unspecified hepatic cirrhosis for liver biopsy in the morning, chronic thrombocytopenia. PROCEDURES DONE DURING HOSPITALIZATION: Echo with 2D Doppler done showed an ejection fraction of 55%-60% with no obvious vegetation seen. MRI lumbar spine showed postoperative changes of laminectomy at L2-L3 with no drainable fluid collection. There was severe left and moderate to severe right neural foraminal narrowing at L2-L3 due to broad-based disk osteophyte complex and facet hypertrophy. Abdominal and pelvic CAT scan done on the day of admission showed findings of cirrhosis with portal hypertension, cholelithiasis. No hydronephrosis was seen. Small pulmonary nodule in right lower lobe. Chest x- ray done showed no acute cardiopulmonary abnormalities. Blood cultures x2, no growth. Urine culture, no growth. Had a white count of 6.1 on the day of admission. Discharge numbers of 2.8, H and H 12 and 37, platelet count is 72 on the day of discharge, MCV is 114, PRP was 5.4. PSA was 2.10. Albumin 2.5. Hepatitis C antibody was nonreactive. HIV 1 and 2 antigen and antibody nonreactive. Urethral smear for gonorrhea and chlamydia are pending at present. INPATIENT CONSULTS: Dr. French for Infectious Disease, Dr. Light for Urology. BRIEF COURSE DURING HOSPITALIZATION: The patient initially got admitted on after he had a fever of 103 at home. He has had 4 episodes in the last 2 months, which he describes as feeling sick and fever coming after ejaculation. He has tried two different antibiotics prior to arrival here. In view of this history, he was admitted for possible fever of unknown origin. The patient's blood and urine cultures were negative. Multiple other workups as mentioned above has been negative. His urethral smear for gonorrhea and chlamydia are pending at present. Patient has had consultation with Dr. Light and has had perirectal examination done, which showed mild prostate enlargement with no boggy feeling. Clinically, he did not have any findings of epididymo- orchitis. He has chronic thrombocytopenia with unspecified cirrhosis for which patient is scheduled for a liver biopsy in the morning. The patient was scheduled for Indium WBC scan, but his WBC count dropped to 2.4, hence this was discontinued. He was advised to come for gallium scan, but the patient has reservations to come 3 times in the outpatient setting for the same. He has remained afebrile all through his stay in the hospital. His white count has been within normal limits. A CT of the abdomen and pelvis, chest x-ray, lumbar spine MRI and echo have not revealed any pathology towards his fever. He is ambulating and eating well prior to discharge. Per Dr. French' advice, he has been given prescription for ciprofloxacin for a period of 4 weeks. The patient needs to follow up with Dr. Light in the outpatient setting in 2 weeks. He will likely require cystoscopy. Pending labs including urethral smear needs to be followed up by primary care physician in 1 week. A total of 35 minutes was spent on discharge plan. Please see a [id number] documentation on [facility] for the day of discharge. Please note patient is scheduled for a liver biopsy in the morning and he has been strongly counseled to come for the biopsy. SHARON
[2017-02-16 05:15] LABS: GC - Neisseria gonorrhoeae NAA Negative (Negative)
== END 2017-02-14 14:31 | disposition home or self-care (01) | DRG 864 ==
LOC: SCSER 19:43 → MERGE 23:06 → T4-B 23:06
PROVIDERS: ADMIT Internal Medicine; ATTEND Internal Medicine
DX: R50.9 Fever, unspecified (principal); N17.9 Acute kidney failure, unspecified; D69.6 Thrombocytopenia, unspecified; R31.29 Other microscopic hematuria; K74.60 Unspecified cirrhosis of liver; R39.9 Unspecified symptoms and signs involving the genitourinary system; N52.9 Male erectile dysfunction, unspecified; R35.1 Nocturia; N43.41 Spermatocele of epididymis, single; I10 Essential (primary) hypertension; E66.9 Obesity, unspecified; Z68.34 Body mass index [BMI] 34.0-34.9, adult; M54.5 Low back pain; Z85.831 Personal history of malignant neoplasm of soft tissue; Z92.21 Personal history of antineoplastic chemotherapy
CPT/HCPCS: 36415; 71020; 72158; 74177; 80048; 80053; 80306; 81003; 81015; 82140; 82553; 83605; 83690; 84484; 85025; 86140; 86803; 87040; 87086; 87389; 87491; 87591; 93005; 93306; 96361; 96374; A4216; A9579; G0103; J0692; J1956; J7050

== ENCOUNTER 2017-02-15 07:35 | Day surgery (SDC) | payer BC ==
[2017-02-15 07:18] VITALS: BMI 35.5
[2017-02-15 08:33] LABS: PTT 28.2 SEC (22.9-36.1); Prothrombin Time 15.1 SEC (12.0-14.7)
[2017-02-15 08:46] LABS: Hematocrit 40.6 % (42.0-52.0); Mean Platelet Volume 7.6 fL (7.4-10.4); Red Blood Cell (RBC) Count 3.57 mill/uL (4.70-6.10); White Blood Cell (WBC) Count 4.7 thou/uL (4.8-10.8)
[2017-02-15 08:47] LABS: #Basophils 0.1 thou/uL (0.0-0.2); #Eosinphils 0.3 thou/uL (0.0-0.7); #Lymphocytes 1.4 thou/uL (1.20-3.40); #Monocytes 0.7 thou/uL (0.11-0.59); #Neutrophils 2.3 thou/uL (1.40-6.50); %Basophils 1.2 % (0.0-1.0); %Eosinophils 5.6 % (0.0-10.0); %Lymphocytes 29.7 % (21.0-51.0); %Monocytes 14.2 % (0.0-10.0)
[2017-02-15 08:55] LABS: Band 3 % (5-11); Metamyelocyte 1 % (0-0); Neutrophil 46 % (42-75); Reactive Lymphocytes 4 % (0-10)
[2017-02-15] MEDS ORDERED: Fentanyl 100 MCG/2 ML VIAL ONE (09:27)
[2017-02-15] MEDS ORDERED: Sodium Bicarbonate 2.4 MEQ/5 ML ONE (09:27)
[2017-02-15] MEDS ORDERED: Midazolam HCl 2 mg/2 ml Vial ONE (09:27)
--- NOTE | 2017-02-15 11:20 | ULT ---
ULTRASOUND DIRECTED LIVER BIOPSY: HISTORY: The patient has a history of synovial sarcoma of the hand. The patient has abnormal liver function tests. FINDINGS: After informed consent was obtained, the patient was prepped and draped in normal sterile fashion. Local anesthesia obtained with % Xylocaine mixed with sodium bicarb. Conscious sedation was also us ed with a total of 50 mcg of Fentanyl and 0.5 mg of Versed given during the procedure. A small skin incision was made with a #11 scalpel blade. The left lobe of the liver was chosen for the area of biopsy. A 17-gauge guiding needle was placed and an 18-gauge Biopince needle was introduced coaxial ly and a single core biopsy was obtained of the left lobe of the liver. Post biopsy imaging showed no signs of any hematoma. The patient tolerated the procedure well. There are no immediate complic ations. IMPRESSION: Ultrasound-directed biopsy of the left lobe of the liver. POS: [place]
[2017-02-15 13:18] VITALS: BP 122/70; TEMP 97.8
== END 2017-02-15 12:00 | disposition home or self-care (01) ==
LOC: ULT 07:35 → MERGE 07:35 → ULT 12:00
PROVIDERS: ATTEND Internal Medicine Gastroenterology
PROC: 0FB23ZX Excision of Left Lobe Liver, Percutaneous Approach, Diagnostic (ICD-10-PCS; principal; 2017-02-15)
PROC: BF45ZZZ Ultrasonography of Liver (ICD-10-PCS; principal; 2017-02-15)
DX: R94.5 Abnormal results of liver function studies (principal); I10 Essential (primary) hypertension; E66.9 Obesity, unspecified; K74.60 Unspecified cirrhosis of liver; D69.6 Thrombocytopenia, unspecified; M54.9 Dorsalgia, unspecified; G89.29 Other chronic pain; Z68.35 Body mass index [BMI] 35.0-35.9, adult; Z79.2 Long term (current) use of antibiotics; Z79.51 Long term (current) use of inhaled steroids; Z79.899 Other long term (current) drug therapy; Z88.8 Allergy status to other drugs, medicaments and biological substances; Z91.048 Other nonmedicinal substance allergy status; Z85.828 Personal history of other malignant neoplasm of skin; Z92.21 Personal history of antineoplastic chemotherapy
CPT/HCPCS: 47000; 76942; 85025; 85610; 85730; 88307; 88313; 99152; 99153; J2250; J3010

== ENCOUNTER 2017-08-01 10:37 | Outpatient (CLI) | payer BC ==
--- NOTE | 2017-08-01 14:19 | MRI ---
MRI LUMBAR SPINE NONCONTRAST: Date: 08/01/17 HISTORY: Low back pain. Prior surgery. Stenosis. FINDINGS: The conus medullaris has a normal appearance. Heterogeneous bone marrow signal has the appearance of discogenic end plate changes. T12-L1: Mild disc bulge. Circumferential degenerative changes with mild central canal stenosis. L1-2: Disc space narrowing with minimal degenerative retrolisthesis. Posterior disc bulge and circumferenti al degenerative changes result in mild stenosis of the central canal and each neural foramen. L2-3: Postoperative changes with posterior disc decompression. Disc space narrowing and minimal degenerativ e retrolisthesis. Posterior disc bulge is present. Mild central canal stenosis remains. Severe bilate ral foraminal stenoses, left greater than right. L3-4: Osseous hypertrophy of the facets. Thecal sac is patent. Moderate bilateral foraminal stenosis. L4-5: Osseous hypertrophy of the facets. Thecal sac is patent. Moderate bilateral foraminal stenosis. L5-S1: Mild osteophytosis. Central canal and right neural foramen are patent. Moderate stenosis left neural foramen. IMPRESSION: Postoperative and multilevel degenerative changes throughout the lumbar spine as detailed above. Sten oses greatest at L2-3 level, worse on the left than the right. Clinical correlation regarding left L2 dermatome is required. POS: [place]
== END 2017-08-01 10:38 | disposition home or self-care (01) ==
LOC: SCSMRI 10:37
PROVIDERS: ATTEND Student in an Organized Health Care Education/Training Program
DX: M48.061 Spinal stenosis, lumbar region without neurogenic claudication (principal); M47.896 Other spondylosis, lumbar region; Z98.890 Other specified postprocedural states
CPT/HCPCS: 72148

== ENCOUNTER 2017-12-17 11:19 | Outpatient (CLI) | payer BC | END 2017-12-17 11:20 | disposition home or self-care (01) | LOC: BICCT 11:19 | PROVIDERS: ATTEND Student in an Organized Health Care Education/Training Program | DX: T84.226A Displacement of internal fixation device of vertebrae, initial encounter (principal); M47.896 Other spondylosis, lumbar region; M99.83 Other biomechanical lesions of lumbar region | CPT/HCPCS: 72131 ==

== ENCOUNTER 2018-05-08 08:05 | Outpatient (CLI) | payer BC ==
--- NOTE | 2018-05-08 09:27 | CT ---
LUMBAR SPINE CT: Date: 05-08-18 Comparison: 12-17-17 History: Low back pain. Left lower extremity radiculopathy, multiple lumbar spine surgeries. Technique: Axial CT imaging obtained at 2.5 mm intervals through the lumbar spine without contrast. C oronal and sagittal reformatted imaging obtained. FINDINGS: Evaluation for central canal and/or neural foraminal stenosis is limited on routine CT examination. There are numerous upper abdominal varices. Incompletely imaged spleen appears enlarged. Findings sug gest portal hypertension. Partially imaged gallstones are present within the gallbladder lumen. There are bilateral pedicle screws present at L2 and L3 with vertically oriented interlocking rods, a s seen on the prior examination. On the prior study there was an intervertebral disc device at the L2 -3 level which has been removed. No significant anterolisthesis or retrolisthesis is evident within the lumbar spine. At the T10-11 level there is bilateral facet hypertrophy, right greater than left, with moderate righ t and mild left neural foraminal stenosis suspected. No osseous cause of central canal stenosis. At T 11-12 there is bilateral facet hypertrophy with probable severe right and mild/moderate left neural f oraminal stenosis. Mild central canal stenosis suspected. T12-L1: Bilateral facet hypertrophy. No osseous cause of significant central canal or neural foramina l stenosis. L1-2: Disc space narrowing, anterior osteophyte formation, and anterior vacuum disc formation. Bilate ral facet hypertrophy. The patient appears status post bilateral facetectomy. No osseous cause of sig nificant neural foraminal stenosis. Disc osteophyte complex causes at least mild central canal stenos is. L2-3: Streak artifact from hardware slightly limits assessment. There is facet hypertrophy and associ ated osteophyte formation with moderate/severe associated left neural foraminal stenosis and at least mild right neural foraminal stenosis. There is posterior osteophyte formation to the left of midline with at least mild central canal stenosis. There is fragmentation of the superior endplate of L3 ass ociated with the now removed disc device. Evaluation for underlying central canal and neural foramina l stenosis is limited. L3-4: Bilateral facet hypertrophy and hypertrophy of the ligamentum flavum. No osseous cause of signi ficant central canal stenosis. Moderate/severe bilateral neural foraminal stenosis noted, right great er than left. L4-5: Bilateral facet hypertrophy and hypertrophy of ligamentum flavum. Moderate bilateral neural for aminal stenosis is suspected, left greater than right. No osseous cause of significant central canal stenosis. L5-S1: Significant facet hypertrophy noted bilaterally, particularly on the left. At least moderate l eft and mild right neural foraminal stenosis. No osseous cause of significant central canal stenosis. No worrisome lytic or blastic bone lesion. No acute fracture or evidence of dislocation. IMPRESSION: 1. Multilevel post-operative and degenerative change within the lumbar spine with associated multifoc al central canal and neural foraminal stenosis, not optimally assessed on noncontrast enhanced imagin g. Follow up CT myelogram may be beneficial as clinically warranted. 2. Findings suggesting portal hypertension as detailed above. 3. Cholelithiasis. POS: OFF
--- NOTE | 2018-05-08 11:48 | MRI ---
MRI LUMBAR SPINE WITHOUT CONTRAST: Date: 05/08/18 HISTORY: Lumbar stenosis. Radiculopathy. Pain. COMPARISON: 08/01/17. CORRELATION: Lumbar spine CT dated 05/16/18. TECHNIQUE: MRI lumbar spine is performed without intravenous Gadolinium administration. Multisequential, multipl betsy imaging is performed. FINDINGS: There is a metallic susceptibility artifact secondary to bilateral transpedicular screws at L2 and L3 . There is T1 marrow signal hypointensity with associated T2 and STIR hyperintensity at the inferior end plate of L2 and superior end plate of L3. The signal change has decreased when compared to the pr ior examination. Symmetric signal intensity of the psoas muscles. Appropriate signal intensity of the visualized solid organs. Conus medullaris terminates at the inferior aspect of L1. T12-L1: Generalized disc bulge, minimal ligamentum flavum thickening. No significant central canal s tenosis. Mild bilateral foraminal narrowing. L1-L2: 4.5 mm of retrolisthesis of L1 upon L2. Mild loss of disc space height. Generalized disc bulg e, ligamentum flavum thickening, and facet hypertrophy result in mild central canal stenosis. Mild to moderate right and mild left neural foraminal narrowing. L2-L3: Posterior laminectomy defect. No significant central canal stenosis. Right neural foramen is mildly narrowed. There is abnormal signal intensity in the left neural foramen. There appears to be a t least moderate to severe central canal stenosis. Expected fat in the neural foramen is not apprecia tito. Findings may be on the basis of degenerative change. Postoperative change with scar tissue canno t be excluded. Postcontrast imaging would be beneficial. L3-L4: Adequate disc hydration. No significant central canal stenosis. Mild to moderate bilateral fo raminal narrowing. L4-L5: Adequate disc hydration. Ligamentum flavum thickening and facet hypertrophy are noted. No sig nificant central canal stenosis. Mild to moderate bilateral foraminal narrowing. L5-S1: Adequate disc hydration. No significant central canal stenosis. Mild to moderate bilateral ne ural foraminal narrowing. IMPRESSION: Interval placement of bilateral transpedicular screws at L2-L3. Associated laminectomy defect. There is significant narrowing of the left neural foramen at L2-L3 which may be on the basis of degenerativ e change. Postoperative scar tissue cannot be excluded. Postcontrast imaging would be beneficial. POS: [facility]
== END 2018-05-08 08:06 | disposition home or self-care (01) ==
LOC: CT 08:05
PROVIDERS: ATTEND Student in an Organized Health Care Education/Training Program
DX: M48.061 Spinal stenosis, lumbar region without neurogenic claudication (principal); K80.20 Calculus of gallbladder without cholecystitis without obstruction; M47.816 Spondylosis without myelopathy or radiculopathy, lumbar region; M48.07 Spinal stenosis, lumbosacral region; Z98.890 Other specified postprocedural states
CPT/HCPCS: 72131; 72148

== ENCOUNTER 2018-10-24 12:38 | Outpatient (CLI) | payer BC ==
--- NOTE | 2018-10-24 13:37 | MRI ---
MRI LUMBAR SPINE WITHOUT CONTRAST: HISTORY: Left leg and groin pain. Back pain. Previous lumbar fusion. COMPARISON: 05/08/2018 and 08/01/2017 FINDINGS: Redemonstration of bilateral transpedicular screws at L2-L3 with associated metallic susceptibility a rtifact. Stable T1 marrow signal intensity of the lumbar vertebra. No significant STIR hyperintensity to suggest vertebral body or ligamentous injury. Persistent 4 mm of retrolisthesis of L1 upon L2. Appropriate signal intensity of the paraspinal muscles. Appropriate signal intensity of the visualized solid organs. The conus medullaris terminates at the superior endplate of L2. Sta ble post surgical scar from the inferior aspect of T12 to the inferior aspect of L3. T12-L1: Generalized disc bulge. Mild central canal stenosis. Mild bilateral foraminal narrowing. L1-L2: Stable severe loss of disc space height. Generalized disc bulge results in mild central ila l stenosis. Moderate bilateral foraminal narrowing. L2-L3: Posterior laminectomy defect. No significant posterior disc abnormality. No significant etelvina tral canal stenosis. Moderate right and moderate to severe left foraminal narrowing. L3-L4: Adequate disc hydration. Posterior laminectomy defect. No significant central canal stenosi s. Mild to moderate bilateral foraminal narrowing. L4-L5: Adequate disc hydration. Generalized disc bulge does not cause any significant central canal stenosis. Mild right and left foraminal narrowing. L5-S1: Adequate disc hydration. No significant central canal stenosis. Neural foramina are patent. IMPRESSION: 1. Stable fusion changes. 2. Varying degrees of central canal stenosis and foraminal narrowing, as detailed above. 3. Significant left foraminal narrowing at L2-L3 is redemonstrated. Transcribed Date/Time: 10/24/2018 1:56 PM
--- NOTE | 2018-10-24 13:52 | CT ---
CT Lumbar Spine WO Con History: [M 48.061. Left leg pain. ] Comparison: CT lumbar spine April 2018 Findings: There are portosystemic shunts. No retroperitoneal adenopathy. Aortic contour is nonaneurys mal. Mild degenerative disease both SI joints. Posterior spinal fusion hardware within the collecting rods at L2/L3 without hardware complication. Fragmentation of the superior endplate of L3. For detailed level by level evaluation please see the MRI exam dated same day. Prior laminectomy lassiter ges L2 and L3. Impression: Similar examination of the lumbar spine from the May 08, 2018 exam. Level by level e valuation is performed on the same day MRI. No acute osseous abnormality.
== END 2018-10-24 12:39 | disposition home or self-care (01) ==
LOC: TBSIIMAG 12:38
PROVIDERS: ATTEND Student in an Organized Health Care Education/Training Program
DX: M48.061 Spinal stenosis, lumbar region without neurogenic claudication (principal); M48.07 Spinal stenosis, lumbosacral region; Z98.1 Arthrodesis status
CPT/HCPCS: 72131; 72148

== ENCOUNTER 2019-06-18 09:08 | Outpatient (CLI) | payer BC ==
--- NOTE | 2019-06-18 10:39 | MRI ---
MRI LUMBAR SPINE NONCONTRAST: DATE: 06/18/2019 HISTORY: 54-year-old male with ICD-10: M 48.06 spinal stenosis, lumbar region. Chronic low back pain. COMPARISON: 10/24/2018 FINDINGS: For the purposes of this report, it will be assumed that there are 5 lumbar-type vertebrae. Vertebral body heights are maintained. There has been no significant interval change overall. T12-L1:Mild to moderate disc space narrowing. Diffuse disc bulge. Mild central spinal canal stenosis. No neural foraminal stenosis. L1-2:Retrolisthesis of L1 on L2. Mild diffuse disc bulge. Mild bilateral neural foraminal stenosis. M ild central spinal canal stenosis. L2-3:Conus medullaris terminates at this level. Midline laminectomy defect results in generous calibe r of thecal sac. Bilateral pedicle screws at L2 and L3. Metallic markers for interbody cage in the disc space. Clumping and distortion of arrangement of cauda equina not attributable to magnetic susce ptibility artifact. This is consistent with chronic arachnoiditis. No high-grade neural foraminal stenosis on the right. There is probably scar tissue in the left neural foramen. There is also modera te to severe left neural foraminal stenosis. Postsurgical scar tissue along midline in the posterior perivertebral space and subcutaneous fat. L3-4:Disc space maintained. Minimal disc bulge. Difficulty in assessing degree of bilateral neural fo raminal stenosis because of magnetic susceptibility artifact from L3 pedicle screws. Probably mild to moderate bilateral neural foraminal stenosis. No high-grade central spinal canal stenosis. Posteri or epidural fat pad. Mild to moderate thecal sac stenosis. L4-5:Moderate bilateral facet DJD. Ligamentum flavum thickening. Disc space maintained. Slight retrol isthesis of L4 on L5. Minimal disc bulge mostly laterally bilaterally. Mild to moderate bilateral neural foraminal stenosis. No high-grade central stenosis. L5-S1:Disc space maintained. Spinal canal and thecal sac caliber generous. Severe bilateral facet DJD , left worse than right. Moderate bilateral neural foraminal stenosis, left worse than right. IMPRESSION: 1. Lumbar spondylosis. 2. Status post posterior lumbar interbody fusion and midline laminectomy at L2-3. 3. Chronic arachnoiditis at L2-3. 4. High-grade facet osteoarthrosis at lower levels, especially at L5-S1 (severe), worst on the left a t L5-S1. 5. No high-grade central spinal canal stenosis at any level. 6. Moderate neural foraminal stenosis at several levels. 7. No significant interval change.
== END 2019-06-18 09:09 | disposition home or self-care (01) ==
LOC: BICMRI 09:08
PROVIDERS: ATTEND Student in an Organized Health Care Education/Training Program
DX: M48.061 Spinal stenosis, lumbar region without neurogenic claudication (principal); M47.816 Spondylosis without myelopathy or radiculopathy, lumbar region; G03.1 Chronic meningitis; M47.817 Spondylosis without myelopathy or radiculopathy, lumbosacral region; M48.07 Spinal stenosis, lumbosacral region; Z98.1 Arthrodesis status
CPT/HCPCS: 72148

== ENCOUNTER 2021-04-20 10:15 | Outpatient (CLI) | payer BC | END 2021-04-20 10:16 | disposition home or self-care (01) | LOC: BICCT 10:15 | PROVIDERS: ATTEND Student in an Organized Health Care Education/Training Program | DX: M48.061 Spinal stenosis, lumbar region without neurogenic claudication (principal); M54.50 Low back pain, unspecified; M47.816 Spondylosis without myelopathy or radiculopathy, lumbar region; K80.20 Calculus of gallbladder without cholecystitis without obstruction; K74.60 Unspecified cirrhosis of liver; M25.78 Osteophyte, vertebrae; Z98.890 Other specified postprocedural states | CPT/HCPCS: 72110; 72131 ==

== ENCOUNTER 2021-10-04 08:10 | Outpatient (CLI) | payer BC | END 2021-10-04 08:11 | disposition home or self-care (01) | LOC: BICULT 08:10 | PROVIDERS: ATTEND Physician Assistant Medical | DX: Z12.11 Encounter for screening for malignant neoplasm of colon (principal); E88.01 Alpha-1-antitrypsin deficiency; K74.60 Unspecified cirrhosis of liver; K80.20 Calculus of gallbladder without cholecystitis without obstruction; R16.1 Splenomegaly, not elsewhere classified | CPT/HCPCS: 76705 ==

== ENCOUNTER 2021-10-08 13:01 | Inpatient (IN) | payer MEDICARE, BC ==
[~2021-10-08 13:01] MED LIST changes: -Iopamidol 370 76% 100 ML VIAL ONE; +Iopamidol-370 76% 500 ML 1 ML ONE
[2021-10-08 13:40] LABS: #Basophils 0.1 thou/uL (0.0-0.2); #Eosinphils 0.4 thou/uL (0.0-0.7); #Lymphocytes 1.5 thou/uL (1.20-3.40); #Monocytes 0.6 thou/uL (0.11-0.59); #Neutrophils 3.5 thou/uL (1.40-6.50); %Basophils 0.9 % (0.0-1.0); %Eosinophils 7.1 % (0.0-10.0); %Lymphocytes 24.9 % (21.0-51.0); %Monocytes 10.3 % (0.0-10.0); %Neutrophils 56.9 % (42.0-75.0); Hemoglobin 15.2 g/dL (14.0-18.0); Mean Corpuscular Hemoglobin 37.2 pg (27.0-31.0); Mean Platelet Volume 7.3 fL (7.4-10.4); Platelet Count 132 thou/uL (130-400); RBC Distribution Width 13.4 % (11.5-14.5); Red Blood Cell (RBC) Count 4.08 mill/uL (4.70-6.10); White Blood Cell (WBC) Count 6.1 thou/uL (4.8-10.8)
[2021-10-08 13:57] LABS: ALT (SGPT) 41 U/L (8-55); AST (SGOT) 48 U/L (5-34); Albumin 3.5 g/dL (3.5-5.0); Alkaline Phosphatase 123 U/L (40-110); Anion Gap 10 mmol/L (10-20); BUN (Urea Nitrogen) 15 mg/dL (8.4-25.7); Bilirubin, Total 2.3 mg/dL (0.2-1.2); Calc. Creatinine Clearance 0 mL/min (70-130); Calcium 9.7 mg/dL (7.8-10.44); Carbon Dioxide 27 mmol/L (22-29); Chloride 107 mmol/L (98-107); Globulin 2.7 g/dL (2.4-3.5); Glucose 94 mg/dL (70-105); Lipase 31 U/L (8-78); Potassium 3.8 mmol/L (3.5-5.1); Protein, Total 6.2 g/dL (6.0-8.3); Sodium 140 mmol/L (136-145)
[2021-10-08 13:59] LABS: MDiff Complete? YES; Macrocytosis MODERATE=16-30 cells (100X) (0-5/hpf); Platelet Morphology Comment Appears Adequate; Polychromasia SLIGHT = 2-3 cells (100X) (0-2/hpf)
[2021-10-08 14:17] LABS: Bilirubin Negative (Negative); Blood, Urine Negative (Negative); Clarity Clear (Clear); Glucose, Urine (Dipstick) Normal (Negative); Ketone, Urine Negative (Negative); Leukocyte Negative Leu/uL (Negative); Nitrite Negative (Negative); Protein, Urine (Dipstick) Negative (Neg-Trace); Urobilinogen Normal mg/dL (Less than 2); pH, Urine 5.5 (5.0-9.0)
[2021-10-08] MEDS ORDERED: Promethazine HCl 25 MG/ML VIAL IM PRN (16:56)
[2021-10-08] MEDS ORDERED: Calcium Carbonate 500 MG ChewTAB PO PRN (16:56)
[2021-10-08] MEDS ORDERED: Mag-Al 1200 mg/1200 mg/30 ML UDCUP PO PRN (16:56)
[2021-10-08] MEDS ORDERED: Dextrose 50% Abboject 50 ML SYRINGE SLOW IVP PRN (16:56)
[2021-10-08] MEDS ORDERED: Dextrose 5% in Water 1,000 ML IV PRN (16:56)
[2021-10-08] MEDS ORDERED: hydrALAZINE 20 MG/ML VIAL SLOW IVP PRN (16:56)
[2021-10-08] MEDS: Morphine 4 MG/ML VIAL SLOW IVP PRN ×2 (17:38→20:49)
[2021-10-08] MEDS: D5 1/2 NS w/20 mEq KCL 1,000 ML IV SCH (17:39)
[2021-10-08 17:57] VITALS: BMI 36.9
[2021-10-08] MEDS: Famotidine/PF 20 mg/2ml Vial SLOW IVP SCH (20:52)
[2021-10-08] MEDS: Famotidine 20 MG TAB PO SCH (21:11)
[2021-10-08 23:14] LABS: SARS-CoV-2 PCR by NAA Not Detected (NotDetected)
[2021-10-08] MEDS: HYDROcodone/Acetaminophen 10/325 mg Tablet PO PRN (23:23)
[2021-10-09] MEDS: D5 1/2 NS w/20 mEq KCL 1,000 ML IV SCH ×2 (02:26→07:58)
[2021-10-09] MEDS: Morphine 4 MG/ML VIAL SLOW IVP PRN ×2 (02:38→12:42)
[2021-10-09 05:44] LABS: ALT (SGPT) 32 U/L (8-55); AST (SGOT) 38 U/L (5-34); Albumin 2.9 g/dL (3.5-5.0); Alkaline Phosphatase 91 U/L (40-110); Anion Gap 9 mmol/L (10-20); BUN (Urea Nitrogen) 14 mg/dL (8.4-25.7); Bilirubin, Total 3.3 mg/dL (0.2-1.2); Calc. Creatinine Clearance 96 mL/min (70-130); Calcium 8.7 mg/dL (7.8-10.44); Carbon Dioxide 25 mmol/L (22-29); Chloride 108 mmol/L (98-107); Globulin 2.3 g/dL (2.4-3.5); Glucose 102 mg/dL (70-105); Potassium 3.6 mmol/L (3.5-5.1); Protein, Total 5.2 g/dL (6.0-8.3); Sodium 138 mmol/L (136-145)
[2021-10-09] MEDS: Famotidine/PF 20 mg/2ml Vial SLOW IVP SCH (07:57)
[2021-10-09] MEDS: Famotidine 20 MG TAB PO SCH (07:57)
[2021-10-09 08:18] LABS: #Basophils 0.1 thou/uL (0.0-0.2); #Eosinphils 0.5 thou/uL (0.0-0.7); #Lymphocytes 1.6 thou/uL (1.20-3.40); #Monocytes 0.5 thou/uL (0.11-0.59); #Neutrophils 1.7 thou/uL (1.40-6.50); %Basophils 1.4 % (0.0-1.0); %Eosinophils 10.9 % (0.0-10.0); %Lymphocytes 37.2 % (21.0-51.0); %Monocytes 10.9 % (0.0-10.0); %Neutrophils 39.6 % (42.0-75.0); Hemoglobin 13.8 g/dL (14.0-18.0); Mean Corpuscular HGB CONC 33.4 g/dL (32.0-36.0); Mean Corpuscular Hemoglobin 36.7 pg (27.0-31.0); Mean Platelet Volume 7.2 fL (7.4-10.4); Platelet Count 99 thou/uL (130-400); Platelet Morphology Comment Appears Decreased; RBC Distribution Width 13.5 % (11.5-14.5); RBC Morphology Normal; Red Blood Cell (RBC) Count 3.76 mill/uL (4.70-6.10); White Blood Cell (WBC) Count 4.4 thou/uL (4.8-10.8)
[2021-10-09] MEDS ORDERED: Famotidine/PF 20 mg/2ml Vial ONE (09:48)
[2021-10-09] MEDS ORDERED: Lidocaine 1% w/Epinephrine 1:100K 20 ML VIAL ONE (09:48)
[2021-10-09] MEDS ORDERED: Ioversol 68 % 50 ML VIAL ONE (09:48)
[2021-10-09] MEDS ORDERED: Bupivacaine 0.25% 10 ML VIAL ONE (09:48)
[2021-10-09] MEDS ORDERED: fentaNYL Citrate/PF 100 MCG/2 ML SYRINGE ONE (09:54)
[2021-10-09] MEDS ORDERED: Sodium Chloride 0.9% 100 ML ONE (10:07)
[2021-10-09] MEDS ORDERED: cefOXitin 2 GM VIAL ONE (10:07)
[2021-10-09] MEDS ORDERED: ePHEDrine 50 MG/ML VIAL ONE (10:21)
[2021-10-09] MEDS ORDERED: Glycopyrrolate 0.2 MG/ML 5 ML SYRINGE ONE (10:21)
[2021-10-09] MEDS ORDERED: Metoclopramide HCl 10 MG/2 ML VIAL ONE (10:21)
[2021-10-09] MEDS ORDERED: Succinylcholine 200 MG/10 ml SYRINGE FS ONE (10:21)
[2021-10-09] MEDS ORDERED: Lidocaine 1% PF 5 ML VIAL ONE (10:21)
[2021-10-09] MEDS ORDERED: PROPOFOL 200 MG/20 ML VIAL ONE (10:21)
[2021-10-09] MEDS ORDERED: Rocuronium Bromide 10 MG/ML (10ML VIAL) ONE (10:21)
[2021-10-09] MEDS ORDERED: Dexamethasone 20 MG/5 ML VIAL ONE (10:21)
[2021-10-09] MEDS ORDERED: SUGAMMADEX SODIUM 200 MG/2 ML VIAL ONE (11:46)
[2021-10-09 12:37] VITALS: BP 112/63; TEMP 98.3
[2021-10-09] MEDS: HYDROcodone/Acetaminophen 10/325 mg Tablet PO PRN (15:30)
== END 2021-10-09 16:55 | disposition home or self-care (01) | DRG 419 ==
LOC: ERS 13:01 → MSONC 15:25
PROVIDERS: ADMIT Surgery; ATTEND Surgery
PROC: 0FT44ZZ Resection of Gallbladder, Percutaneous Endoscopic Approach (ICD-10-PCS; principal; 2021-10-09)
PROC: BF0C1ZZ Plain Radiography of Hepatobiliary System, All using Low Osmolar Contrast (ICD-10-PCS; 2021-10-09)
DX: K81.0 Acute cholecystitis (principal); I10 Essential (primary) hypertension; E78.5 Hyperlipidemia, unspecified; F41.9 Anxiety disorder, unspecified; Z20.822 Contact with and (suspected) exposure to COVID-19; F17.220 Nicotine dependence, chewing tobacco, uncomplicated; Z85.828 Personal history of other malignant neoplasm of skin; Z91.048 Other nonmedicinal substance allergy status; Z88.8 Allergy status to other drugs, medicaments and biological substances; Z92.21 Personal history of antineoplastic chemotherapy; Z92.3 Personal history of irradiation
CPT/HCPCS: 36415; 47532; 74177; 80053; 81003; 83690; 85025; 88304; 96360; C1713; J0694; J1100; J1610; J2270; J2704; J2765; J3480; J3490; Q9967; S0020; S0028; U0003; U0005

== ENCOUNTER 2022-04-11 08:03 | Outpatient (CLI) | payer BC | END 2022-04-11 08:04 | disposition home or self-care (01) | LOC: BICULT 08:03 | PROVIDERS: ATTEND Internal Medicine Gastroenterology | DX: K74.60 Unspecified cirrhosis of liver (principal); E88.01 Alpha-1-antitrypsin deficiency; E83.19 Other disorders of iron metabolism; R16.1 Splenomegaly, not elsewhere classified; Z90.49 Acquired absence of other specified parts of digestive tract | CPT/HCPCS: 76705 ==

== ENCOUNTER 2022-07-27 19:45 | Inpatient (IN) | payer MEDICARE, BC ==
[~2022-07-27 19:45] MED LIST changes: +ISOVUE-370 76%-LOCM 1 ML ONE; -Iopamidol-370 76% 500 ML 1 ML ONE
[2022-07-27 20:05] LABS: #Basophils 0.1 thou/uL (0.0-0.2); #Eosinphils 0.4 thou/uL (0.0-0.7); #Lymphocytes 2.6 thou/uL (1.20-3.40); #Monocytes 0.6 thou/uL (0.11-0.59); #Neutrophils 2.4 thou/uL (1.40-6.50); %Basophils 1.6 % (0.0-1.0); %Eosinophils 6.2 % (0.0-10.0); %Lymphocytes 42.3 % (21.0-51.0); %Monocytes 10.2 % (0.0-10.0); %Neutrophils 39.6 % (42.0-75.0); Hemoglobin 13.7 g/dL (14.0-18.0); Mean Corpuscular HGB CONC 32.7 g/dL (32.0-36.0); Mean Platelet Volume 8.2 fL (7.4-10.4); Platelet Count 151 10x3/uL (130-400); RBC Distribution Width 15.6 % (11.5-14.5); Red Blood Cell (RBC) Count 4.04 mill/uL (4.70-6.10); White Blood Cell (WBC) Count 6.1 10x3/uL (4.8-10.8)
[2022-07-27 20:13] LABS: INR-International Normal Ratio 1.1; PTT 28.1 sec (22.9-36.1); Prothrombin Time 14.6 sec (12.0-14.7)
[2022-07-27 20:20] LABS: ALT (SGPT) 34 U/L (8-55); AST (SGOT) 46 U/L (5-34); Albumin 3.5 g/dL (3.5-5.0); Alkaline Phosphatase 144 U/L (40-110); Anion Gap 13 mmol/L (10-20); BUN (Urea Nitrogen) 15 mg/dL (8.4-25.7); Bilirubin, Total 1.7 mg/dL (0.2-1.2); CK (CPK) 228 U/L (30-200); Calc. Creatinine Clearance 0 mL/min (70-130); Carbon Dioxide 24 mmol/L (22-29); Chloride 112 mmol/L (98-107); Estimated GFR 47; Globulin 2.7 g/dL (2.4-3.5); Glucose 84 mg/dL (70-105); Potassium 3.7 mmol/L (3.5-5.1); Protein, Total 6.2 g/dL (6.0-8.3); Sodium 145 mmol/L (136-145)
[2022-07-27 20:43] LABS: CKMB 3.9 ng/mL (0-6.6)
[2022-07-27] MEDS ORDERED: hydrALAZINE 20 MG/ML VIAL SLOW IVP PRN (23:40)
[2022-07-27] MEDS ORDERED: Promethazine HCl 12.5 MG in Sodium Chloride 0.9% 50 ML IVPB PRN (23:40)
[2022-07-27] MEDS ORDERED: Lorazepam 2 MG/ML VIAL SLOW IVP PRN (23:40)
[2022-07-27] MEDS ORDERED: Aspirin Chewable 81 MG TAB PO SCH (23:59)
[2022-07-28 00:18] VITALS: BMI 36.3
[2022-07-28 04:22] LABS: Hemoglobin 12.2 g/dL (14.0-18.0); Mean Corpuscular HGB CONC 33.1 g/dL (32.0-36.0); Mean Corpuscular Hemoglobin 34.3 pg (27.0-31.0); RBC Distribution Width 15.6 % (11.5-14.5); Red Blood Cell (RBC) Count 3.57 mill/uL (4.70-6.10); White Blood Cell (WBC) Count 4.9 10x3/uL (4.8-10.8)
[2022-07-28 04:31] LABS: ALT (SGPT) 28 U/L (8-55); AST (SGOT) 44 U/L (5-34); Albumin 2.6 g/dL (3.5-5.0); Alkaline Phosphatase 109 U/L (40-110); Anion Gap 13 mmol/L (10-20); BUN (Urea Nitrogen) 14 mg/dL (8.4-25.7); Bilirubin, Total 1.5 mg/dL (0.2-1.2); Calc. Creatinine Clearance 94 mL/min (70-130); Calcium 9.1 mg/dL (7.8-10.44); Carbon Dioxide 22 mmol/L (22-29); Cardiac Risk 2.5 (Less than 4.5); Chloride 112 mmol/L (98-107); Cholesterol 113 mg/dl (< 200 Desired); Estimated GFR 57; Globulin 2.8 g/dL (2.4-3.5); Glucose 87 mg/dL (70-105); HDL Cholesterol 46 mg/dL (>60 Neg Risk); LDL Cholesterol, Calculated 54 mg/dL; Magnesium 1.9 mg/dL (1.6-2.6); Potassium 3.7 mmol/L (3.5-5.1); Protein, Total 5.4 g/dL (6.0-8.3); Sodium 143 mmol/L (136-145); Triglycerides 67 mg/dL (Less than 150)
[2022-07-28 04:42] LABS: Troponin I 0.036 ng/mL (< 0.028)
[2022-07-28 05:24] LABS: #Basophils 0.1 thou/uL (0.0-0.2); #Eosinphils 0.3 thou/uL (0.0-0.7); #Lymphocytes 1.7 thou/uL (1.20-3.40); #Monocytes 0.7 thou/uL (0.11-0.59); #Neutrophils 2.2 thou/uL (1.40-6.50); %Basophils 1.2 % (0.0-1.0); %Eosinophils 5.6 % (0.0-10.0); %Monocytes 13.3 % (0.0-10.0); %Neutrophils 44.9 % (42.0-75.0); Mean Platelet Volume 8.3 fL (7.4-10.4); Platelet Count 115 10x3/uL (130-400); Platelet Morphology Comment Appears Decreased
[2022-07-28] MEDS: Aspirin 81 mg Enteric Coated Tablet PO SCH (09:23)
[2022-07-28] MEDS: Acetaminophen 325 MG TAB PO PRN ×3 (09:23→20:29)
[2022-07-28] MEDS ORDERED: Lorazepam 0.5 MG TAB PO PRN (12:31)
[2022-07-28] MEDS ORDERED: clonazePAM 0.5 MG TAB PO SCH ×3 (12:36→21:00)
[2022-07-28] MEDS ORDERED: cefTRIAXone\\ROCEPHIN 1 GM in Sodium Chloride 0.9% 100 ML IVPB SCH (13:00)
[2022-07-28] MEDS ORDERED: Lorazepam 2 MG/ML VIAL IM PRN (17:25)
[2022-07-28] MEDS ORDERED: Lorazepam 1 MG TAB PO PRN (17:25)
[2022-07-28] MEDS ORDERED: Electrolyte Replacement Protocol FS SCH (17:30)
[2022-07-28] MEDS ORDERED: Thiamine HCl 200 MG/2 ML VIAL SLOW IVP SCH (18:00)
[2022-07-28] MEDS: Lorazepam 1 MG TAB PO SCH ×2 (18:25→23:45)
[2022-07-28] MEDS: Folic Acid 1 MG, Thiamine HCl 100 MG in Dextrose 5 %-0.45 % NaCl 1,000 ML IV SCH (18:25)
[2022-07-28 18:38] LABS: #Eosinphils 0.2 thou/uL (0.0-0.7); #Lymphocytes 1.3 thou/uL (1.20-3.40); #Monocytes 0.5 thou/uL (0.11-0.59); #Neutrophils 2.5 thou/uL (1.40-6.50); %Basophils 0.8 % (0.0-1.0); %Eosinophils 4.1 % (0.0-10.0); %Lymphocytes 29.8 % (21.0-51.0); %Monocytes 10.4 % (0.0-10.0); %Neutrophils 54.9 % (42.0-75.0); Mean Corpuscular HGB CONC 34.2 g/dL (32.0-36.0); Mean Corpuscular Hemoglobin 35.1 pg (27.0-31.0); Mean Platelet Volume 7.9 fL (7.4-10.4); Platelet Count 118 10x3/uL (130-400); RBC Distribution Width 15.3 % (11.5-14.5); White Blood Cell (WBC) Count 4.5 10x3/uL (4.8-10.8)
[2022-07-28 18:53] LABS: ALT (SGPT) 31 U/L (8-55); AST (SGOT) 41 U/L (5-34); Albumin 3.2 g/dL (3.5-5.0); Alkaline Phosphatase 117 U/L (40-110); Anion Gap 12 mmol/L (10-20); BUN (Urea Nitrogen) 16 mg/dL (8.4-25.7); Bilirubin, Direct 0.8 mg/dL (0.1-0.3); Bilirubin, Total 2.5 mg/dL (0.2-1.2); Calc. Creatinine Clearance 88 mL/min (70-130); Calcium 9.1 mg/dL (7.8-10.44); Carbon Dioxide 25 mmol/L (22-29); Chloride 109 mmol/L (98-107); Estimated GFR 52; Globulin 2.7 g/dL (2.4-3.5); Glucose 87 mg/dL (70-105); Magnesium 1.6 mg/dL (1.6-2.6); Phosphorus 2.4 mg/dL (2.3-4.7); Potassium 3.6 mmol/L (3.5-5.1); Protein, Total 5.9 g/dL (6.0-8.3); Sodium 142 mmol/L (136-145)
[2022-07-28] MEDS: Atorvastatin Calcium 40 MG TAB PO SCH (20:29)
[2022-07-28] MEDS: guaiFENesin ER 600 MG TAB PO SCH (20:29)
[2022-07-28] MEDS ORDERED: Cefdinir 300 MG CAP PO SCH (21:00)
[2022-07-28 21:29] LABS: Amphetamine Not Detected (NotDetected); Barbiturates Screen Not Detected (NotDetected); Benzodiazepine Screen Not Detected (NotDetected); Cocaine Metabolite Screen Not Detected (NotDetected); Methadone Not Detected (NotDetected); Methamphetamine Not Detected (NotDetected); Opiate Screen Not Detected (NotDetected); Oxycodone Screen Not Detected (NotDetected); Phencyclidine (PCP) Not Detected (NotDetected); THC/Cannabinoid Screen Not Detected (NotDetected); Tricyclic Screen Not Detected (NotDetected)
[2022-07-28] MEDS ORDERED: Magnesium 2 GM/50 ML(in water) 2 GM in Premix Bag 1 BAG IVPB SCH (23:59)
[2022-07-29] MEDS: Lorazepam 1 MG TAB PO SCH ×3 (06:10→17:35)
[2022-07-29 07:07] LABS: #Eosinphils 0.2 thou/uL (0.0-0.7); #Lymphocytes 1.3 thou/uL (1.20-3.40); #Monocytes 0.5 thou/uL (0.11-0.59); #Neutrophils 1.5 thou/uL (1.40-6.50); %Basophils 1.3 % (0.0-1.0); %Lymphocytes 35.8 % (21.0-51.0); %Monocytes 13.9 % (0.0-10.0); %Neutrophils 42.1 % (42.0-75.0); Hemoglobin 11.4 g/dL (14.0-18.0); Mean Corpuscular HGB CONC 33.2 g/dL (32.0-36.0); Mean Corpuscular Hemoglobin 34.3 pg (27.0-31.0); Mean Platelet Volume 8.6 fL (7.4-10.4); Platelet Count 89 10x3/uL (130-400); RBC Distribution Width 15.2 % (11.5-14.5); Red Blood Cell (RBC) Count 3.31 mill/uL (4.70-6.10); White Blood Cell (WBC) Count 3.6 10x3/uL (4.8-10.8)
[2022-07-29 07:25] LABS: Anion Gap 8 mmol/L (10-20); BUN (Urea Nitrogen) 15 mg/dL (8.4-25.7); Calc. Creatinine Clearance 87 mL/min (70-130); Calcium 8.5 mg/dL (7.8-10.44); Carbon Dioxide 27 mmol/L (22-29); Chloride 109 mmol/L (98-107); Estimated GFR 52; Glucose 122 mg/dL (70-105); Potassium 3.1 mmol/L (3.5-5.1); Sodium 141 mmol/L (136-145)
[2022-07-29] MEDS ORDERED: Potassium Chloride 20 MEQ TAB PO SCH (08:45)
[2022-07-29] MEDS: Fluticasone Propionate Nasal Spray 16 gm Bottle NASAL SCH (10:20)
[2022-07-29] MEDS: Folic Acid 1 MG TAB PO SCH (10:21)
[2022-07-29] MEDS: Aspirin 81 mg Enteric Coated Tablet PO SCH (10:21)
[2022-07-29] MEDS: Cefdinir 300 MG CAP PO SCH ×2 (10:21→21:43)
[2022-07-29] MEDS: clonazePAM 0.5 MG TAB PO SCH (10:21)
[2022-07-29] MEDS: guaiFENesin ER 600 MG TAB PO SCH ×2 (10:22→21:43)
[2022-07-29] MEDS: Multivit, Therapeutic 1 TAB PO SCH (10:22)
[2022-07-29 11:43] LABS: Syphilis Antibody Nonreactive (Nonreactive)
[2022-07-29] MEDS ORDERED: Clindamycin/D5W 300 MG/50 ML BAG IVPB SCH (12:00)
[2022-07-29] MEDS ORDERED: Clindamycin/D5W 300 MG in Premix Bag 1 BAG IVPB SCH (12:00)
[2022-07-29 15:12] LABS: Potassium 3.6 mmol/L (3.5-5.1)
[2022-07-29] MEDS ORDERED: Lorazepam 1 MG TAB PO PRN (17:25)
[2022-07-29] MEDS: Folic Acid 1 MG, Thiamine HCl 100 MG in Dextrose 5 %-0.45 % NaCl 1,000 ML IV SCH (17:28)
[2022-07-29 19:17] LABS: Magnesium 2.1 mg/dL (1.6-2.6)
[2022-07-29] MEDS: Atorvastatin Calcium 40 MG TAB PO SCH (21:43)
[2022-07-30] MEDS: Lorazepam 1 MG TAB PO SCH ×2 (00:02→09:27)
[2022-07-30 06:49] LABS: #Eosinphils 0.2 thou/uL (0.0-0.7); #Lymphocytes 0.9 thou/uL (1.20-3.40); #Monocytes 0.4 thou/uL (0.11-0.59); #Neutrophils 1.2 thou/uL (1.40-6.50); %Basophils 0.6 % (0.0-1.0); %Eosinophils 8.3 % (0.0-10.0); %Lymphocytes 31.8 % (21.0-51.0); %Monocytes 14.7 % (0.0-10.0); %Neutrophils 44.6 % (42.0-75.0); Hemoglobin 11.7 g/dL (14.0-18.0); Mean Corpuscular HGB CONC 33.8 g/dL (32.0-36.0); Mean Platelet Volume 8.5 fL (7.4-10.4); Platelet Count 89 10x3/uL (130-400); RBC Distribution Width 14.9 % (11.5-14.5); Red Blood Cell (RBC) Count 3.35 mill/uL (4.70-6.10); White Blood Cell (WBC) Count 2.7 10x3/uL (4.8-10.8)
[2022-07-30 06:53] LABS: Anion Gap 10 mmol/L (10-20); BUN (Urea Nitrogen) 16 mg/dL (8.4-25.7); Calc. Creatinine Clearance 93 mL/min (70-130); Calcium 8.7 mg/dL (7.8-10.44); Carbon Dioxide 24 mmol/L (22-29); Chloride 113 mmol/L (98-107); Estimated GFR 56; Glucose 97 mg/dL (70-105); Potassium 3.6 mmol/L (3.5-5.1); Sodium 143 mmol/L (136-145)
[2022-07-30] MEDS ORDERED: predniSONE 50 MG TAB PO SCH (08:00)
[2022-07-30] MEDS ORDERED: Metoprolol Tartrate 25 MG TAB PO SCH (09:00)
[2022-07-30] MEDS: Fluticasone Propionate Nasal Spray 16 gm Bottle NASAL SCH (12:02)
[2022-07-30] MEDS: Aspirin 81 mg Enteric Coated Tablet PO SCH (12:02)
[2022-07-30] MEDS: Multivit, Therapeutic 1 TAB PO SCH (12:03)
[2022-07-30] MEDS: guaiFENesin ER 600 MG TAB PO SCH (12:03)
[2022-07-30] MEDS: clonazePAM 0.5 MG TAB PO SCH (12:03)
[2022-07-30] MEDS: Folic Acid 1 MG TAB PO SCH (12:03)
[2022-07-30] MEDS: Cefdinir 300 MG CAP PO SCH (12:03)
[2022-07-30 12:23] VITALS: BP 131/82; TEMP 98
[2022-07-30] MEDS ORDERED: Lorazepam 1 MG TAB PO PRN (17:25)
[2022-07-30] MEDS ORDERED: Lorazepam 0.5 MG TAB PO SCH (18:00)
[2022-07-31] MEDS ORDERED: Lorazepam 0.5 MG TAB PO PRN (17:25)
[2022-07-31] MEDS ORDERED: Thiamine 100 MG TAB PO SCH (18:00)
== END 2022-07-30 16:26 | disposition home or self-care (01) | DRG 69 ==
LOC: ERS 19:45 → NEURO 22:13
PROVIDERS: ADMIT Physician Assistant; ATTEND Internal Medicine
DX: G45.9 Transient cerebral ischemic attack, unspecified (principal); R47.01 Aphasia; I47.20 Ventricular tachycardia, unspecified; E78.5 Hyperlipidemia, unspecified; Z20.822 Contact with and (suspected) exposure to COVID-19; F10.20 Alcohol dependence, uncomplicated; H70.92 Unspecified mastoiditis, left ear; I12.9 Hypertensive chronic kidney disease with stage 1 through stage 4 chronic kidney disease, or unspecified chronic kidney disease; N18.30 Chronic kidney disease, stage 3 unspecified; D53.9 Nutritional anemia, unspecified; E87.6 Hypokalemia; F41.9 Anxiety disorder, unspecified; Z90.49 Acquired absence of other specified parts of digestive tract; Z88.8 Allergy status to other drugs, medicaments and biological substances; Z79.899 Other long term (current) drug therapy
CPT/HCPCS: 36415; 36416; 70450; 70486; 70496; 70498; 70551; 78452; 80048; 80053; 80061; 80306; 82248; 82550; 82553; 83735; 84100; 84443; 84484; 85025; 85610; 85730; 86780; 93005; 93017; 93306; 95816; 95819; 95957; A9500; J0696; J1650; J3411; J3475; J3490; J7042; J7512; Q9966; U0003; U0005

== ENCOUNTER 2024-12-12 16:34 | Inpatient (IN) | payer MEDICARE, BC ==
[~2024-12-12 16:34] MED LIST changes: -ISOVUE-370 76%-LOCM 1 ML ONE; +Iopamidol 370 76% 100 ML VIAL ONE
[2024-12-12 17:32] LABS: ALT (SGPT) 21 U/L (Less than 45); AST (SGOT) 58 U/L (11-34); Albumin 2.7 g/dL (3.1-4.5); Alkaline Phosphatase 107 U/L (40-110); Anion Gap 14 mmol/L (10-20); BUN (Urea Nitrogen) 16 mg/dL (8.4-25.7); Bilirubin, Total 2.6 mg/dL (0.3-1.2); Calc. Creatinine Clearance 0 mL/min (70-130); Calcium 8.4 mg/dL (7.8-10.44); Carbon Dioxide 22 mmol/L (22-29); Chloride 110 mmol/L (98-107); Globulin 2.6 g/dL (2.4-3.5); Glucose 71 mg/dL (70-105); Lipase 26 U/L (8-78); Magnesium 1.8 mg/dL (1.6-2.6); Potassium 3.6 mmol/L (3.5-5.1); Sodium 142 mmol/L (136-145)
[2024-12-12 17:36] LABS: Troponin I 0.036 ng/mL (< 0.028)
[2024-12-12 17:55] LABS: #Basophils 0.09 10x3/uL (0.0-0.2); #Eosinophils 0.65 10x3/uL (0.0-0.7); #Monocytes 0.85 10x3/uL (0.11-0.59); #Neutrophils 2.29 10x3/uL (1.40-6.50); %Basophils 1.7 % (0.0-1.0); %Eosinophils 12.0 % (0.0-10.0); %Lymphocytes 28.2 % (21.0-51.0); %Monocytes 15.7 % (0.0-10.0); %Neutrophils 42.0 % (42.0-75.0); Hematocrit 36.1 % (42.0-52.0); Hemoglobin 12.8 g/dL (14.0-18.0); Mean Corpuscular Hemoglobin 36.2 pg (27.0-31.0); Mean Corpuscular Volume 102.0 fL (78.0-98.0); Platelet Count 111 10x3/uL (130-400); Red Blood Cell (RBC) Count 3.54 mill/uL (4.70-6.10); White Blood Cell (WBC) Count 5.43 10x3/uL (4.8-10.8)
[2024-12-12] MEDS ORDERED: Nitroglycerin 0.4 MG TAB 1 EACH ONE (18:29)
[2024-12-12] MEDS ORDERED: Furosemide 40 MG (4 mL) VIAL ONE (18:29)
[2024-12-12 20:52] LABS: Troponin I 0.042 ng/mL (< 0.028)
[2024-12-12 21:46] VITALS: BMI 38.7
[2024-12-12] MEDS: Heparin 5,000 UNITS/ML VIAL SC SCH (22:05)
[2024-12-12] MEDS: Furosemide 40 MG (4 mL) VIAL SLOW IVP SCH (22:05)
[2024-12-12] MEDS ORDERED: Metoprolol Succinate XL 50 MG ER.TAB PO SCH (22:30)
[2024-12-12] MEDS: Losartan 25 MG TAB PO SCH (23:09)
[2024-12-12] MEDS: Isosorbide Mononitrate 30 MG ER.TAB.S PO SCH (23:09)
[2024-12-12 23:33] LABS: Troponin I 0.044 ng/mL (< 0.028)
[2024-12-13] MEDS: Acetaminophen 500 MG TAB PO PRN (01:22)
[2024-12-13 05:03] LABS: Anion Gap 9 mmol/L (10-20); BUN (Urea Nitrogen) 19 mg/dL (8.4-25.7); Calc. Creatinine Clearance 81 mL/min (70-130); Calcium 8.4 mg/dL (7.8-10.44); Carbon Dioxide 31 mmol/L (22-29); Chloride 107 mmol/L (98-107); Glucose 97 mg/dL (70-105); Potassium 3.5 mmol/L (3.5-5.1); Sodium 143 mmol/L (136-145)
[2024-12-13 05:04] LABS: Troponin I 0.042 ng/mL (< 0.028)
[2024-12-13] MEDS: Isosorbide Mononitrate 30 MG ER.TAB.S PO SCH (09:18)
[2024-12-13] MEDS: Metoprolol Succinate XL 50 MG ER.TAB PO SCH (09:18)
[2024-12-13] MEDS: Furosemide 40 MG (4 mL) VIAL SLOW IVP SCH (09:18)
[2024-12-13] MEDS: Losartan 25 MG TAB PO SCH (09:18)
[2024-12-13] MEDS: Aspirin 81 mg Enteric Coated Tablet PO SCH (09:18)
[2024-12-13] MEDS: Transdermal Patch Removal TOP SCH (09:19)
[2024-12-13] MEDS: clonazePAM 0.5 MG TAB PO SCH (20:07)
[2024-12-13] MEDS ORDERED: Transdermal Patch Removal TOP SCH (21:00)
[2024-12-14 06:19] LABS: #Basophils 0.09 10x3/uL (0.0-0.2); #Eosinophils 0.65 10x3/uL (0.0-0.7); #Monocytes 0.94 10x3/uL (0.11-0.59); #Neutrophils 2.23 10x3/uL (1.40-6.50); %Basophils 1.7 % (0.0-1.0); %Eosinophils 12.0 % (0.0-10.0); %Lymphocytes 27.4 % (21.0-51.0); %Monocytes 17.4 % (0.0-10.0); %Neutrophils 41.3 % (42.0-75.0); Hematocrit 36.2 % (42.0-52.0); Hemoglobin 12.8 g/dL (14.0-18.0); Mean Corpuscular Hemoglobin 36.3 pg (27.0-31.0); Mean Corpuscular Volume 102.5 fL (78.0-98.0); Platelet Count 112 10x3/uL (130-400); Red Blood Cell (RBC) Count 3.53 mill/uL (4.70-6.10); White Blood Cell (WBC) Count 5.40 10x3/uL (4.8-10.8)
[2024-12-14 10:58] LABS: Anion Gap 11 mmol/L (10-20); BUN (Urea Nitrogen) 19 mg/dL (8.4-25.7); Calc. Creatinine Clearance 86 mL/min (70-130); Calcium 9.0 mg/dL (7.8-10.44); Carbon Dioxide 30 mmol/L (22-29); Chloride 105 mmol/L (98-107); Glucose 89 mg/dL (70-105); Potassium 3.4 mmol/L (3.5-5.1); Sodium 143 mmol/L (136-145)
[2024-12-14 14:49] VITALS: BP 102/66; TEMP 98
== END 2024-12-14 17:53 | disposition home or self-care (01) | DRG 291 ==
LOC: ERS 16:34 → OBS 19:39
PROVIDERS: ADMIT Internal Medicine; ATTEND Internal Medicine
DX: I13.0 Hypertensive heart and chronic kidney disease with heart failure and stage 1 through stage 4 chronic kidney disease, or unspecified chronic kidney disease (principal); I50.33 Acute on chronic diastolic (congestive) heart failure; G89.29 Other chronic pain; M54.9 Dorsalgia, unspecified; Z91.048 Other nonmedicinal substance allergy status; Z88.8 Allergy status to other drugs, medicaments and biological substances; Z68.38 Body mass index [BMI] 38.0-38.9, adult; N18.30 Chronic kidney disease, stage 3 unspecified; K74.60 Unspecified cirrhosis of liver; Z79.82 Long term (current) use of aspirin; Z79.01 Long term (current) use of anticoagulants; Z79.899 Other long term (current) drug therapy; E78.5 Hyperlipidemia, unspecified; E88.01 Alpha-1-antitrypsin deficiency; R07.89 Other chest pain
CPT/HCPCS: 36415; 71045; 71275; 74174; 78452; 80048; 80053; 83690; 83735; 83880; 84484; 85025; 93005; 93017; 93306; 96374; 96375; A9502; J1644; J1940; J2270; J2785; Q9967